=== PATIENT | male | born 1940 | race Caucasian/White ===

== ENCOUNTER → 2017-11-03 09:45 | Outpatient (CLI) | payer OTHER, SELFPAY ==
[2017-11-03 11:50] LABS: CREATININE 1.06 mg/dL (0.70-1.30); Glucose 96 mg/dL (70-100); HDL Cholesterol 38 mg/dL (40-60); LDL CHOLESTEROL 151 mg/dL (<100); Potassium 4.2 mmol/L (3.5-5.1); Triglyceride 236 mg/dL (30-150)
[2017-11-03 12:09] LABS: Cholesterol 219 mg/dL (50-200)
== END ==
PROVIDERS: PCP Family Medicine; Visit Provider Family Medicine
DX: I10 Essential (primary) hypertension (principal); E78.5 Hyperlipidemia, unspecified; E74.39 Other disorders of intestinal carbohydrate absorption
CPT/HCPCS: 36415; 80061; 82947; 83721; 82565; 84132

== ENCOUNTER 2018-07-01 20:09 | Emergency (ER) | payer OTHER, MEDICAID, SELFPAY ==
[2018-07-01] VITALS (36 sets, daily range): BP systolic 131–165; BP diastolic 68–103; PULSE 60–91; RESP 15–23; TEMP 36.4–37; O2SAT 91–99
--- NOTE | 2018-07-01 20:18 | DI.RAD_ITS ---
SYMPTOMS/DIAGNOSIS: LEFT CHEST PAIN CHEST: Frontal and lateral views. Comparison 04/05/13. The heart size and pulmonary vasculature are within normal limits. The lungs are clear. No effusions or pneumothoraces are identified. There is unchanged mild evaluation of the right hemidiaphragm. Age appropriate degenerative changes are seen in the spine. IMPRESSION: No acute pulmonary process.
[2018-07-01 20:30] LABS: Abs Immature Grans 0.06 k/cumm (0.0-0.09); Absolute Basophil Count 0.05 k/cumm (0.0-0.2); Absolute Eosinophil Count 0.56 k/cumm (0.0-0.7); Absolute Lymphocyte Count 3.47 k/cumm (1.2-3.4); Absolute Monocyte Count 1.36 k/cumm (0.11-0.7); Absolute Neutrophil Count 5.24 k/cumm (1.2-6.7); Basophils % 0.5; Eosinophils % 5.2; HCT 43.3 % (40.0-50.0); HGB 14.7 g/dL (13.5-17.5); Immature Grans % 0.6; Lymphocytes % 32.3; Mean Corp. HGB Concentration 33.9 g/dL (32.0-36.0); Mean Corpuscular Hemoglobin 31.2 pg (27.0-33.0); Mean Corpuscular Volume 91.9 fL (80-95); Mean Platelet Volume 11.3 fL (8.0-11.0); Monocytes % 12.7; Neutrophils % 48.7; Platelet Count 200 x1000/uL (130-400); RBC 4.71 m/cumm (4.50-6.00); RBC Distribution Width 13.4 % (11.8-14.1); White Blood Cell Count 10.74 k/cumm (4.4-10.8)
[2018-07-01 20:53] LABS: ALT 29 U/L (12-78); AST 26 U/L (15-37); Albumin 3.7 g/dL (3.4-5.0); Alkaline Phosphatase 78 U/L (46-116); Anion Gap 12.4 mmol/L (3-11); BUN 16 mg/dL (7-18); Bilirubin, Total 0.3 mg/dL (0.2-1.0); CO2 26.6 mmol/L (21.0-32.0); CREATININE 1.04 mg/dL (0.70-1.30); Calcium 9.1 mg/dL (8.5-10.1); Chloride 102 mmol/L (98-107); Glucose 95 mg/dL (70-100); Lipase 184 U/L (73-393); Potassium 3.9 mmol/L (3.5-5.1); Sodium 141 mmol/L (136-145); Total Protein 7.6 g/dL (6.4-8.2)
[2018-07-01 20:57] LABS: Troponin I < 0.02 ng/mL (0.00-0.06)
[2018-07-01 21:02] LABS: PTT Activated 18.5 sec (21.0-31.4); Prothrombin Time 9.6 sec (9.3-11.0)
--- NOTE | 2018-07-01 21:54 | W.ED.GENAD ---
Discharge Plan Disposition Patient Disposition: HOME Condition: Good Discharge Details Chief Complaint: Chest Pain Clinical Impression: Chest pain Primary Care Provider: Azeem Tovar ED Provider: Rafael Gutierrez Home Meds and New Rx's Prescriptions: New ranitidine HCl 300 mg capsule 300 mg PO DAILY Qty: 30 RF: 0 No Action aspirin [Aspirin Low-Strength] 81 MG tablet,chewable 81 mg PO DAILY RF: 0 atenolol 50 MG tablet 50 mg PO DAILY Qty: 90 RF: 4 omeprazole 20 MG capsule,delayed release(DR/EC) 20 mg PO EVERY OTHER DAY Qty: 45 RF: 3 lisinopril-hydrochlorothiazide 20-25 mg tablet 1 tab PO DAILY Qty: 90 RF: 4 Discharge Instructions Instructions: Chest Pain (ED), Diet for Stomach Ulcers and Gastritis (ED) Additional Instructions: If you notice any worsening of your symptoms, or any new symptoms such as vomiting, diarrhea, fever, chills, shortness of breath, chest pain, numbness, weakness, or fainting , please return immediately to the emergency department for reevaluation. Please follow up with your primary care provider as soon as possible for reassessment and reevaluation. As always, it was a pleasure participating in your medical care today. Referrals: Azeem Tovar. [Primary Care Provider] - Medical Decision Making This is a 78-year-old male with a past medical history of hypertension, high cholesterol, tobacco abuse, quit stress test in 2012 which was negative for any ischemic component, who presents today for evaluation of chest pain. States that over the last 3 months he gets this pinching-like sensation after he eats, worse when he lies flat, improved by sitting upright. He denies any exertional component, in fact he states that he regularly exercises does activities outside and has no shortness of breath chest pain or neck or shoulder pain. He denies any other complaints at this time. Signs and symptoms are clinically inconsistent with STEMI, aortic dissection, or severe PE, vital signs are notably reassuring. However because of his history of cardiac disease in the past with his notable cardiac risk factors we will do serial troponins, and cardiac rule out. 11:55 PM Patient serial troponins and EKG are benign, laboratory workup benign, chest x-ray negative for acute process. Signs and symptoms are clinically consistent with reflux and inconsistent with ACS at this time. Recommend close follow-up with his PCP on an outpatient basis, as well as home prescription of reflux medication. In addition to his omeprazole. I have extensively reviewed the treatment plan and discharge instructions with the patient. I have addressed all patient concerns at this time. The patient was made aware of what symptoms to monitor for that would warrant a return to the emergency department. Discussed the plan with the patient, they demonstrate verbal understanding and agreement with our assessment and plan at this time. EKG 20: 14 Rate 91, intervals normal, sinus rhythm, frequent PVCs, no significant ST elevations or depressions. Q waves noted in lead II. EKG 2314 Rate 82, intervals normal, sinus rhythm, frequent PVCs, no significant ST elevations or depressions, no T wave inversion. Q waves noted in lead III. No other significant abnormalities. Unchanged from prior EKG CLINICAL HISTORY: 78 years old, male; Pain; Chest pain; Type not specified; Patient HX: Chest pain for a few days TECHNIQUE: Imaging protocol: XR of the chest, 2 views. COMPARISON: CR CHEST 2 VIEWS PA,LAT 04/05/2013 12:52 PM FINDINGS: Lungs: Clear lungs. Pleural space: No pneumothorax. No sizable pleural effusion. Heart/Mediastinum: No cardiomegaly. Bones/joints: Unremarkable. IMPRESSION: Clear lungs. Dictated and Authenticated by: Henri Riley MD. Ordering:LINDSEY Hall MD HPI General Date/Time Provider Initiated Documentation: 07/01/18 20:17. HPI Narrative: This is a 78-year-old male with a past medical history of hypertension, high cholesterol, tobacco use, and cardiac disease who presents today for evaluation of chest pain. The patient states that over the last 2-3 months he has had intermittent chest pain, it occurs after he eats, worse when he lies flat, improved by sitting upright. He describes it as a pinching sensation. It usually lasts for usually 1-2 hours after eating and then gets better on its own. 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 He denies any previous or recent cough, fever, chills, hemoptysis, history of PE, recent long trips, recent surgeries. Patient had a stress test in 2012 which was benign at that time. He denies any other complaints or modifying factors. He denies any recent surgeries, or pertinent family history. No other complaints at this Related Data Home Medications Medication Instructions Recorded Confirmed aspirin [Aspirin Low-Strength] 81 mg PO DAILY tab-cap 06/23/15 07/01/18 atenolol 50 mg PO DAILY #90 tab-cap 18 07/01/18 omeprazole 20 mg PO EVERY OTHER DAY #45 11/03/17 07/01/18 tab-cap lisinopril 20 1 tab PO DAILY #90 tab-cap 04/04/18 07/01/18 mg-hydrochlorothiazide 25 mg tablet ranitidine HCl 300 mg PO DAILY #30 cap 07/01/18 Previous Rx's Medication Instructions Recorded atenolol 50 mg PO DAILY #90 tab-cap 05/24/17 omeprazole 20 mg PO EVERY OTHER DAY #45 11/03/17 tab-cap lisinopril 20 1 tab PO DAILY #90 tab-cap 04/04/18 mg-hydrochlorothiazide 25 mg tablet ranitidine HCl 300 mg PO DAILY #30 cap 07/01/18 Allergies Allergy/AdvReac Type Severity Reaction Status Date / Time simvastatin AdvReac Severe Hallucinati Unverified 07/01/18 20:16 ons pravastatin AdvReac Mild Nightmares Unverified 07/01/18 20:16 General Stated Complaint: Chest Pain TERRELL: 2 Review of Systems Review of Systems All systems reviewed & are unremarkable except as noted in HPI and below PFSH Family History Mother Essential hypertension Personal history of malignant neoplasm Father Diabetes Heart disease Sister Diabetes Heart disease Sister Essential hypertension Grandfather Diabetes Grandfather Diabetes Heart disease Grandmother Heart disease Grandmother Heart disease Son No problems noted. Son No problems noted. Social History Smoking/Tobacco Use Status: Former Tobacco Use Alcohol Intake: never Drug use: Never Substance use type: does not use Do you feel safe at home: Yes Do you feel safe in your relationship?: Yes Exam Narrative Exam Narrative: 1.Const: Well-nourished, Well-developed, appearing stated age 2.Eyes: PERRL, no conjunctival injection, and symmetrical lids. 3.ENT: Atraumatic external nose and ears. Moist MM. Neck: Symmetric, trachea midline, No thyromegaly. 4.CVS: +S1/S2, No murmurs or gallops. Peripheral pulses 2+ and equal in all extremities. Brisk capillary refill in all extremities. Radial pulses +2 bilaterally 5.RESP: Unlabored respiratory effort. Clear to auscultation bilaterally. No wheezes rales or rhonchi 6.GI: Soft, Nontender/Nondistended, No hepatosplenomegaly. No guarding or rebound. 7.MSK: Normocephalic/Atraumatic, Extremities w/o deformity or ttp No cyanosis or clubbing, Normal movement of all extremities 8.Skin: Warm, Dry. No rashes or lesions. 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 Sensation grossly intact, no focal neurologic deficits. 10.Psych: (AAO) x3. Appropriate mood and affect Course Vital Signs Temperature 36.4 C L 07/01/18 20:14 Pulse 87 07/01/18 20:14 Respiratory Rate 19 07/01/18 20:14 Blood Pressure 159/103 H 07/01/18 20:14 Pulse Oximetry 99 07/01/18 20:14 Temperature 36.9 C 07/01/18 21:35 Temperature Source Skin 07/01/18 21:35 Pulse 70 07/01/18 21:31 Pulse 83 07/01/18 21:31 Respiratory Rate 17 07/01/18 21:31 Respiratory Effort Non-Labored 07/01/18 20:29 Respiratory Depth Normal 07/01/18 20:29 Respiratory Pattern Normal 07/01/18 20:29 Blood Pressure 159/84 H 07/01/18 21:31 Blood Pressure Mean 101 07/01/18 21:31 Blood Pressure Position Sitting 07/01/18 20:14 Pulse Oximetry 92 L 07/01/18 21:31 Oxygen Delivery Method Room Air 07/01/18 20:14 Oxygen Flow Rate 0 07/01/18 20:14 Pain Level 5 07/01/18 20:29 Lab/Test Results Lab/Test Results: Laboratory Tests Range/Units 07/01/18 07/01/18 07/01/18 20:21 20:21 20:21 WBC (4.4-10.8) k/cumm 10.74 RBC (4.50-6.00) m/cumm 4.71 Hgb (13.5-17.5) g/dL 14.7 Hct (40.0-50.0) % 43.3 MCV (80-95) fL 91.9 MCH (27.0-33.0) pg 31.2 MCHC (32.0-36.0) g/dL 33.9 RDW (11.8-14.1) % 13.4 Plt Count (130-400) x1000/uL 200 MPV (8.0-11.0) fL 11.3 H Immature Gran % 0.6 Neutrophils % 48.7 Lymphocytes % 32.3 Monocytes % 12.7 Eosinophils % 5.2 Basophils % 0.5 Absolute Neutrophils (1.2-6.7) k/cumm 5.24 Absolute Lymphocytes (1.2-3.4) k/cumm 3.47 H Absolute Monocytes (0.11-0.7) k/cumm 1.36 H Absolute Eosinophils (0.0-0.7) k/cumm 0.56 Absolute Basophils (0.0-0.2) k/cumm 0.05 PT (9.3-11.0) sec 9.6 INR (0.9-1.1) 1.0 APTT (21.0-31.4) sec 18.5 L Sodium (136-145) mmol/L 141 Potassium (3.5-5.1) mmol/L 3.9 Chloride (98-107) mmol/L 102 Carbon Dioxide (21.0-32.0) mmol/L 26.6 Anion Gap (3-11) mmol/L 12.4 H BUN (7-18) mg/dL 16 Creatinine (0.70-1.30) mg/dL 1.04 Estimated GFR/1.73 m2 (mL/min/1.73m2) >= 60.00 Glucose (70-100) mg/dL 95 Calcium (8.5-10.1) mg/dL 9.1 Total Bilirubin (0.2-1.0) mg/dL 0.3 AST (15-37) U/L 26 ALT (12-78) U/L 29 Alkaline Phosphatase (46-116) U/L 78 Troponin I (0.00-0.06) ng/mL < 0.02 Total Protein (6.4-8.2) g/dL 7.6 Albumin (3.4-5.0) g/dL 3.7 Lipase (73-393) U/L 184
--- NOTE | 2018-07-01 22:01 | DI.VRAD_ITS ---
EXAM: XR Chest, 2 Views EXAM DATE/TIME: 07/01/2018 8:19 PM CLINICAL HISTORY: 78 years old, male; Pain; Chest pain; Type not specified; Patient HX: Chest pain for a few days TECHNIQUE: Imaging protocol: XR of the chest, 2 views. COMPARISON: CR CHEST 2 VIEWS PA,LAT 04/05/2013 12:52 PM FINDINGS: Lungs: Clear lungs. Pleural space: No pneumothorax. No sizable pleural effusion. Heart/Mediastinum: No cardiomegaly. Bones/joints: Unremarkable. IMPRESSION: Clear lungs. Dictated and Authenticated by: Henri Riley MD. Ordering:LINDSEY Hall MD
[2018-07-01 23:52] LABS: Troponin I < 0.02 ng/mL (0.00-0.06)
== END 2018-07-02 00:02 | disposition home or self-care (01) ==
PROVIDERS: Emergency Provider Student in an Organized Health Care Education/Training Program; PCP Family Medicine
DX: R07.9 Chest pain, unspecified (principal); I10 Essential (primary) hypertension
CPT/HCPCS: 36415; 80053; 83690; 93005; 99285; 71046; 84484; 85025; 85610; 85730; 93010

== ENCOUNTER 2018-07-05 07:06 | Emergency (ER) | payer OTHER, MEDICAID, SELFPAY ==
[2018-07-05] VITALS (37 sets, daily range): BP systolic 125–186; BP diastolic 68–86; PULSE 54–89; RESP 13–27; TEMP 36.8; O2SAT 90–98
--- NOTE | 2018-07-05 07:15 | W.ED.GENAD ---
Discharge Plan Disposition Patient Disposition: HOME Condition: Improving Discharge Details Chief Complaint: Chest Pain Clinical Impression: Atypical chest pain Primary Care Provider: Azeem Tovar ED Provider: Jennifer Hampton Home Meds and New Rx's Prescriptions: Continued aspirin [Aspirin Low-Strength] 81 MG tablet,chewable 81 mg PO DAILY RF: 0 atenolol 50 MG tablet 50 mg PO DAILY Qty: 90 RF: 4 omeprazole 20 MG capsule,delayed release(DR/EC) 20 mg PO EVERY OTHER DAY Qty: 45 RF: 3 lisinopril-hydrochlorothiazide 20-25 mg tablet 1 tab PO DAILY Qty: 90 RF: 4 ranitidine HCl 300 mg capsule 300 mg PO DAILY Qty: 30 RF: 0 Discharge Instructions Instructions: Chest Pain (ED) Additional Instructions: Follow-up with your scheduled appointment with your primary care doctor next Monday, July 11 at 3 PM. You will hear from your primary care doctor or the radiology department at the hospital regarding your appointment for the outpatient stress test. Fill your prescription that you were given here recently to help with possible acid reflux. Return immediately to the emergency department with any worsening or new concerning symptoms. Discharge Data Discharge Date/Time-TO BE ENTERED AT DEPARTURE: 07/05/18 11:00 Discharge Physician: Jennifer Hampton Medical Decision Making <Job Arita MD - Last Filed: 07/07/18 23:08> 78 yo male with hx of hld, htn, who on his medical record states CAD but sounds like this is from an admissin he had in the early for chestpain and stayed at [facility] for several days and had a stress test and d/c'd home (never had any cath, stent or cabg, suspect he was admitted for acs rule out), comes in with chest pain. He states he ate coffee and a muffin then developed left sided chest pain on the left chest. Pain was burning and lasted about 30 minutes. HE has no pain now unless you push on the left chest. HE had similar pain 2 days ago and had negative delta ecg and troponins. I suspect gastritits, his hx isn't consistent with acs but given his age and risk factors will obtain delta troponin and ecg. He is wells low, given age can't use perc so will obtain d dimer. No tearing chest pain and normal vascular exam so doubt dissection pt will be signed out to Dr. Hampton pending results of labs and disposition Differential Diagnosis gerd, gastritis, pe, dissection, acs ECG Data Attestation: I personally reviewed and interpreted this ECG (s) as follows: Prior ECG tracings: available for review Interpretation: sinus rhythm, frequent pvc's, pr 158, no significant st t wave changes to ekg's on 07/01/18 <Jennifer Hampton, - Last Filed: 07/06/18 18:13> Please see Dr. Arita's note for initial presentation, exam and plan. Patient is a 78-year-old man with history of GERD, hypertension, hyperlipidemia who presents with dull left-sided chest pain that started at 530 this morning after eating a coffee and muffin. States this pain is similar to pain that he had 4 days ago when he was seen in the emergency department. He stated at that time that he has had similar pain after eating and laying flat for the past 3 months. Patient's chart had noted that he has a history of ACS but patient denies any history of VT, CABG, cath or stent. He denies any associated symptoms. He also states the left-sided chest pain is tender to touch. He denies any recent injury. Chest pain appears atypical for ACS and that it is worse with laying flat and after eating, tender to touch, with no other associated symptoms. Denies tearing sensation so doubt dissection. No DVT/PE risk factors and will score low. D-dimer was ordered per Dr. Arita EKG notes a rate of 79, sinus, PVCs, no acute ST findings and no change from previous EKGs. Labs reviewed and had one negative troponin, normal BNP and lipase. Case endorsed to follow up on d-dimer and plan for second troponin and discharge home if negative. Patient is currently pain-free and with chronic nature of pain, which appears most likely consistent with GERD, will plan for outpatient stress test. 0840 -- D dimer elevated at 1436. Will order CT chest. Pt still pain free. 1000 -- CT chest negative for PE. 1045 -- second troponin negative. Repeat EKG unchanged, artifact but no acute ST findings. Patient denies any chest pain is requesting to go home. An appointment was made with his primary care doctor for follow-up next July 11 at 3 PM by care management. An outpatient order was also placed for an outpatient stress test. Patient was notified that he will be called by his primary care doctor or the radiology department once this test has been scheduled. Patient states he has not yet filled the prescription for Zantac he was given here 4 days ago. He is instructed to refrain from dietary choices that may affect GERD. He is instructed to return here immediately with any worsening or new concerning symptoms. Medical Records Medical records reviewed: Yes I reviewed the patient's medical records. Imaging Data Radiologic Study: Radiologist's impression: CT ANGIOGRAPHY CHEST: CT angiography was performed with multi slice acquisition and multi planar and 3D reconstruction. CT Angiography of the chest was performed with a bolus infusion of 100 cc's of Omnipaque 350. Images obtained through the upper abdomen show calcified granulomas of the spleen and liver. The kidneys, pancreas and adrenals are unremarkable in appearance. No mediastinal or hilar adenopathy seen. No evidence of pulmonary embolic disease or abnormality of the thoracic aorta. The lungs are generally clear except for some mild dependent atelectasis. The tracheobronchial tree appears intact. CONCLUSION: No evidence of pulmonary embolic disease. Lab Data Laboratory Tests Range/Units 07/05/18 07/05/18 07/05/18 07:13 07:13 07:13 WBC (4.4-10.8) k/cumm 7.89 RBC (4.50-6.00) m/cumm 5.13 Hgb (13.5-17.5) g/dL 15.9 Hct (40.0-50.0) % 46.6 MCV (80-95) fL 90.8 MCH (27.0-33.0) pg 31.0 MCHC (32.0-36.0) g/dL 34.1 RDW (11.8-14.1) % 13.5 Plt Count (130-400) x1000/uL 232 MPV (8.0-11.0) fL 10.7 Immature Gran % 0.3 Neutrophils % 56.1 Lymphocytes % 28.4 Monocytes % 11.7 Eosinophils % 3.0 Basophils % 0.5 Absolute Neutrophils (1.2-6.7) k/cumm 4.43 Absolute Lymphocytes (1.2-3.4) k/cumm 2.24 Absolute Monocytes (0.11-0.7) k/cumm 0.92 H Absolute Eosinophils (0.0-0.7) k/cumm 0.24 Absolute Basophils (0.0-0.2) k/cumm 0.04 PT (9.3-11.0) sec 9.8 INR (0.9-1.1) 1.0 APTT (21.0-31.4) sec 22.9 D-Dimer (<500) ng/mlFEU 1436 H Sodium (136-145) mmol/L 138 Potassium (3.5-5.1) mmol/L 3.5 Chloride (98-107) mmol/L 98 Carbon Dioxide (21.0-32.0) mmol/L 27.3 Anion Gap (3-11) mmol/L 12.7 H BUN (7-18) mg/dL 15 Creatinine (0.70-1.30) mg/dL 1.09 Estimated GFR/1.73 m2 (mL/min/1.73m2) >= 60.00 Glucose (70-100) mg/dL 130 H Calcium (8.5-10.1) mg/dL 9.5 Magnesium (1.8-2.4) mg/dL 1.9 Total Bilirubin (0.2-1.0) mg/dL 0.4 Conjugated Bilirubin (0.00-0.20) mg/dL 0.09 AST (15-37) U/L 21 ALT (12-78) U/L 31 Alkaline Phosphatase (46-116) U/L 86 Troponin I (0.00-0.06) ng/mL < 0.02 NT-Pro-B Natriuret Pep ( - 299) pg/mL 92 Total Protein (6.4-8.2) g/dL 8.1 Albumin (3.4-5.0) g/dL 4.1 Lipase (73-393) U/L 152 Range/Units 07/05/18 09:55 WBC (4.4-10.8) k/cumm RBC (4.50-6.00) m/cumm Hgb (13.5-17.5) g/dL Hct (40.0-50.0) % MCV (80-95) fL MCH (27.0-33.0) pg MCHC (32.0-36.0) g/dL RDW (11.8-14.1) % Plt Count (130-400) x1000/uL MPV (8.0-11.0) fL Immature Gran % Neutrophils % Lymphocytes % Monocytes % Eosinophils % Basophils % Absolute Neutrophils (1.2-6.7) k/cumm Absolute Lymphocytes (1.2-3.4) k/cumm Absolute Monocytes (0.11-0.7) k/cumm Absolute Eosinophils (0.0-0.7) k/cumm Absolute Basophils (0.0-0.2) k/cumm PT (9.3-11.0) sec INR (0.9-1.1) APTT (21.0-31.4) sec D-Dimer (<500) ng/mlFEU Sodium (136-145) mmol/L Potassium (3.5-5.1) mmol/L Chloride (98-107) mmol/L Carbon Dioxide (21.0-32.0) mmol/L Anion Gap (3-11) mmol/L BUN (7-18) mg/dL Creatinine (0.70-1.30) mg/dL Estimated GFR/1.73 m2 (mL/min/1.73m2) Glucose (70-100) mg/dL Calcium (8.5-10.1) mg/dL Magnesium (1.8-2.4) mg/dL Total Bilirubin (0.2-1.0) mg/dL Conjugated Bilirubin (0.00-0.20) mg/dL AST (15-37) U/L ALT (12-78) U/L Alkaline Phosphatase (46-116) U/L Troponin I (0.00-0.06) ng/mL < 0.02 NT-Pro-B Natriuret Pep ( - 299) pg/mL Total Protein (6.4-8.2) g/dL Albumin (3.4-5.0) g/dL Lipase (73-393) U/L ECG Data Attestation: I personally reviewed and interpreted this ECG (s) as follows: Interpretation: 0712 -- rate of 79, sinus, PVCs. No acute ST elevation or depression. QTc 445. QRS 98. 0956 -- rate of 70, sinus, artifact. No acute ST elevation or depression. QTc 455. QRS 100 per HPI <Job Arita MD - Last Filed: 07/07/18 23:08> General Mode of arrival: ambulatory. Date/Time Provider Initiated Documentation: 07/05/18 07:11. Limitations to Documentation: no limitations. Information obtained by: patient. History of Present Illness 78 year old M presents to the emergency department with the chief complaint of chest pain, described as mild, and is localized to the chest. Patient reports no radiation. Patient started experiencing this hour(s) (1) and it has been constant. No relieving factors improve symptom(s), Other factors that worsen symptoms (pushing on chest) . Patient notes no other symptoms.. Patient did receive the following treatments prior to arrival, none Related Data Home Medications Medication Instructions Recorded Confirmed aspirin [Aspirin Low-Strength] 81 mg PO DAILY tab-cap 06/23/15 07/05/18 atenolol 50 mg PO DAILY #90 tab-cap 05/24/17 07/05/18 omeprazole 20 mg PO EVERY OTHER DAY #45 11/03/17 07/05/18 tab-cap lisinopril 20 1 tab PO DAILY #90 tab-cap 04/04/18 07/05/18 mg-hydrochlorothiazide 25 mg tablet ranitidine HCl 300 mg PO DAILY #30 cap 07/01/18 07/05/18 Previous Rx's Medication Instructions Recorded atenolol 50 mg PO DAILY #90 tab-cap 05/24/17 omeprazole 20 mg PO EVERY OTHER DAY #45 11/03/17 tab-cap lisinopril 20 1 tab PO DAILY #90 tab-cap 04/04/18 mg-hydrochlorothiazide 25 mg tablet ranitidine HCl 300 mg PO DAILY #30 cap 07/01/18 Allergies Allergy/AdvReac Type Severity Reaction Status Date / Time simvastatin AdvReac Severe Hallucinati Unverified 07/05/18 07:23 ons pravastatin AdvReac Mild Nightmares Unverified 07/05/18 07:23 General TERRELL: 2 Review of Systems <Job Arita MD - Last Filed: 07/07/18 23:08> Review of Systems All systems reviewed & are unremarkable except as noted in HPI and below Constitutional Denies chills, Denies fever(s) and Denies weakness ENT Denies change in voice Cardiovascular Denies dyspnea Respiratory Denies cough and Denies dyspnea Gastrointestinal Denies abdominal pain, Denies nausea and Denies vomiting Musculoskeletal Denies joint swelling Integumentary/Breasts Denies rash Neurologic Denies weakness PFSH <Job Arita MD - Last Filed: 07/07/18 23:08> Family History Mother Essential hypertension Personal history of malignant neoplasm Father Diabetes Heart disease Sister Diabetes Heart disease Sister Essential hypertension Grandfather Diabetes Grandfather Diabetes Heart disease Grandmother Heart disease Grandmother Heart disease Son No problems noted. Son No problems noted. Social History Smoking/Tobacco Use Status: Former Tobacco Use Alcohol Intake: never Drug use: Never Substance use type: does not use Do you feel safe at home: Yes Do you feel safe in your relationship?: Yes Exam <Job Arita MD - Last Filed: 07/07/18 23:08> Const General: no acute distress Orientation: alert HENMT Head: normal to inspection Ears: external ears normal General nose exam: external nose normal Mouth: moist mucous membranes Eyes General: appearance normal, both eyes and all related structures Neck Neck: normal visual inspection Resp Effort & Inspection: normal respiratory effort and able to speak in complete sentences Cardio Rate: regular rate Skin General skin exam: no rashes or lesions noted Neuro General: alert and oriented x3 Extrem General: normal to inspection Psych Mental Status: mental status grossly normal Sign Out <Job Arita MD - Last Filed: 07/07/18 23:08> Sign Out Data: Sign Out Comment: follow up on chest pain labs Last updated by Job Arita MD at 07/05/18 07:32
[2018-07-05 07:24] LABS: Abs Immature Grans 0.02 k/cumm (0.0-0.09); Absolute Basophil Count 0.04 k/cumm (0.0-0.2); Absolute Eosinophil Count 0.24 k/cumm (0.0-0.7); Absolute Lymphocyte Count 2.24 k/cumm (1.2-3.4); Absolute Monocyte Count 0.92 k/cumm (0.11-0.7); Absolute Neutrophil Count 4.43 k/cumm (1.2-6.7); Basophils % 0.5; HCT 46.6 % (40.0-50.0); HGB 15.9 g/dL (13.5-17.5); Immature Grans % 0.3; Lymphocytes % 28.4; Mean Corp. HGB Concentration 34.1 g/dL (32.0-36.0); Mean Corpuscular Volume 90.8 fL (80-95); Mean Platelet Volume 10.7 fL (8.0-11.0); Monocytes % 11.7; Neutrophils % 56.1; Platelet Count 232 x1000/uL (130-400); RBC 5.13 m/cumm (4.50-6.00); RBC Distribution Width 13.5 % (11.8-14.1); White Blood Cell Count 7.89 k/cumm (4.4-10.8)
[2018-07-05 07:38] LABS: PTT Activated 22.9 sec (21.0-31.4); Prothrombin Time 9.8 sec (9.3-11.0)
[2018-07-05 07:44] LABS: ALT 31 U/L (12-78); AST 21 U/L (15-37); Albumin 4.1 g/dL (3.4-5.0); Alkaline Phosphatase 86 U/L (46-116); Anion Gap 12.7 mmol/L (3-11); BUN 15 mg/dL (7-18); Bilirubin, Direct 0.09 mg/dL (0.00-0.20); Bilirubin, Total 0.4 mg/dL (0.2-1.0); CO2 27.3 mmol/L (21.0-32.0); CREATININE 1.09 mg/dL (0.70-1.30); Calcium 9.5 mg/dL (8.5-10.1); Chloride 98 mmol/L (98-107); Glucose 130 mg/dL (70-100); Lipase 152 U/L (73-393); Magnesium 1.9 mg/dL (1.8-2.4); NT-proBNP 92 pg/mL; Potassium 3.5 mmol/L (3.5-5.1); Sodium 138 mmol/L (136-145); Total Protein 8.1 g/dL (6.4-8.2)
[2018-07-05 07:48] LABS: Troponin I < 0.02 ng/mL (0.00-0.06)
[2018-07-05 07:53] LABS: D-Dimer 1436 ng/mlFEU (<500)
[2018-07-05] MEDS: Omnipaque 350 MG/ML 100 ML BTL IJ (09:24)
[2018-07-05] MEDS: Normal Saline Flush 10 ML SYR IVP (09:27)
--- NOTE | 2018-07-05 09:36 | DI.CT_ITS ---
SYMPTOMS/DIAGNOSIS: ELEVATED D DIMER, CHEST PAIN, ? PE CT ANGIOGRAPHY CHEST: CT angiography was performed with multi slice acquisition and multi planar and 3D reconstruction. CT Angiography of the chest was performed with a bolus infusion of 100 cc's of Omnipaque 350. Images obtained through the upper abdomen show calcified granulomas of the spleen and liver. The kidneys, pancreas and adrenals are unremarkable in appearance. No mediastinal or hilar adenopathy seen. No evidence of pulmonary embolic disease or abnormality of the thoracic aorta. The lungs are generally clear except for some mild dependent atelectasis. The tracheobronchial tree appears intact. CONCLUSION: No evidence of pulmonary embolic disease.
--- NOTE | 2018-07-05 09:52 | PDOC.ERCMPRO ---
Care Management Progress Note 07/05-Dr. Arita requested assistance with a PCP (Alejandro) f/u in one week for chest pain. Called [facility] and spoke with Nila. Nila scheduled Sushant for Monday, 07/11 at 3:[address] Hampton has now taken over care. She is aware of appt to be placed on d/c paperwork and patient also given an appt card.
[2018-07-05 10:28] LABS: Troponin I < 0.02 ng/mL (0.00-0.06)
== END 2018-07-05 11:00 | disposition home or self-care (01) ==
PROVIDERS: Emergency Medicine; Emergency Provider Physician Assistant; PCP Family Medicine
DX: R07.9 Chest pain, unspecified (principal); I10 Essential (primary) hypertension
CPT/HCPCS: 36415; 71275; 80053; 80076; 83690; 93005; 99285; 83735; 83880; 84484; 85025; 85379; 85610; 85730; 93010; J3490

== ENCOUNTER 2018-07-09 00:31 | Outpatient (CLI) | payer OTHER, MEDICAID, SELFPAY ==
--- NOTE | 2018-07-09 13:45 | ETT_ITS ---
*[facility]* *[facility]* [address] [place] [address] Stress Electrocardiography Vasquez protocol Date of study: 07/09/2018 *PATIENT PRESENTATION* Height: 167.6cm (66in) Blood Pressure: Weight: 68.2kg (150lb) BSA: 1.79m^2 Referring physician: Jennifer Hampton Ordering physician: Jennifer Hampton Impressions: - Negative stress test after maximal exercise. - Frequent single PVCs throughout test. Summary: 1. Stress ECG conclusions: The stress ECG is negative. Frequent isolated ventricular ectopy with left bundle branch block with an inferior axis QRS morphology. Meneses treadmill score: 8. This score predicts a low risk of cardiac events. 2. Stress: The target heart rate was achieved. The heart rate response to stress is normal. There is resting hypertension with an appropriate response to stress. The patient experienced no chest pain during stress. Exercise capacity is average for age. 3. Baseline ECG: Occasional ectopy with left bundle branch block with an inferior axis QRS morphology. 4. Treadmill exercise testing was performed using the Vasquez protocol. The patient exercised for 7 min 40 sec, to protocol stage 3, to a maximal work rate of 9.6mets. Exercise was terminated due to leg fatigue. Recommendations: Holter monitor should be performed to assess PVC burden. Indication: R07.9, Appropriate Use Criteria: A (Appropriate). History: REASON FOR TESTING: PATIENT PRESENTED TO THE ER ON 07/05/18 FOR INTERMITTENT DULL/ACHY LEFT SIDED CHEST PAIN WITH LEFT ARM ACHING THAT LASTED FOR A COUPLE OF HOURS. HE REPORTS HE HAS BEEN GETTING CHEST DISCOMFORT FOR APPROXIMATELY 1 YEAR. HE STATES THE CHEST PAIN HAS BEEN MORE FREQUENT OVER THE LAST WEEK WHICH IS RELEIVED WITH LYING DOWN. IN THE ER PATIENT HAD NEGATIVE TROPONIN X2 AND AN EKG WITH NO ACUTE ST FINDINGS. PATIENT DENIES CHEST PAIN UPON ARRIVAL TO TESTING TODAY. SIGNIFICANT PAST MEDICAL HISTORY: GERD. SMOKING STATUS: QUIT 1979. SMOKED FOR 25 YEARS 1PPD. EXERCISE ROUTINE: ACTIVE WITH DAILY ADL'S AROUND HIS HOME. Risk factors: Family history of coronary artery disease. Hypertension. Dyslipidemia. Cholesterol: 219mg/dl. HDL: 38mg/dl. LDL: 151mg/dl. Triglycerides: 236mg/dl. ALLERGIES: SIMVASTATIN, PRAVASTATIN. MEDICATIONS: RANITIDINE 300 MG PRN, OMEPRAZOLE 20 MG DAILY, LISINOPRIL- HYDROCHLOROTHIAZIDE 20-25 MG DAILY, ATENOLOL 50 MG DAILY, ASPIRIN 81 MG DAILY. Protocol: Vasquez protocol. Baseline ECG: SINUS RHYTHM WITH FREQUENT PVC'S. HR 73 BPM. Normal sinus rhythm. Occasional ectopy with left bundle branch block with an inferior axis QRS morphology. Stress protocol: + +---+ + !Stage !HR !BP (mmHg) ! + +---+ + !Baseline supine !73 !156/70 (99) ! + +---+ + !Baseline standing !83 !160/86 (111)! + +---+ + !Stage I; 1.7mph, 10degrees; 3 min !100!160/70 (100)! + +---+ + !Stage II; 2.5mph, 12degrees; 3 min !110!162/68 (99) ! + +---+ + !Stage III; 3.4mph, 14degrees; 3 min!126!176/80 (112)! + +---+ + !Peak stress !138! ! + +---+ + !Recovery; 1 min !114!180/50 (93) ! + +---+ + !Recovery; 3 min !88 !182/78 (113)! + +---+ + !Recovery; 6 min !81 !164/70 (101)! + +---+ + !Recovery; 9 min !81 !144/78 (100)! + +---+ + * Stress results: STRESS TEST ENDED IN 7 MINUTES 40 SECONDS DUE TO LEG FATIGUE. NORMAL HEART RATE AND BLOOD PRESSURE RESPONSE TO EXERCISE. MAX HEART RATE: 138. 96 % OF TARGET HEART RATE ACHIEVED. MET'S: 9.62. FREQUENT PVC'S PRIOR TO EXERCISE, DURING EXERCISE AND EARLY RECOVERY. FREQUENT RUNS OF TRIGEMINY STARTING AT 4 MINUTES OF EXERCISE THROUGH TO APPROXIMATELY 2 MINUTES OF RECOVERY. NO ANGINA. NO SIGNIFICANT ST SEGMENT CHANGES. AVERAGE FUNCTIONAL CAPACITY. Maximal heart rate during stress was 138bpm (97% of maximal predicted heart rate). The maximal predicted heart rate was 143bpm. The target heart rate was achieved. The heart rate response to stress is normal. There is resting hypertension with an appropriate response to stress. The rate-pressure product for the peak heart rate and blood pressure was 01811kr Hg/min. The patient experienced no chest pain during stress. Exercise capacity is average for age. Stress ECG: The stress ECG is negative. Frequent isolated ventricular ectopy with left bundle branch block with an inferior axis QRS morphology. Meneses treadmill score: 8. This score predicts a low risk of cardiac events. Study data: Job Messer MD supervised and was readily available during the procedure. This study was interpreted by [facility]. Study status: Routine. Consent: The risks, benefits, and alternatives to the procedure were explained to the patient and informed consent was obtained. Procedure: Initial setup. A baseline ECG was recorded. Surface ECG leads and manual cuff blood pressure measurements were monitored. Heart sounds: Normal. Lung sounds: Normal. Treadmill exercise testing was performed using the Vasquez protocol. The patient exercised for 7 min 40 sec, to protocol stage 3, to a maximal work rate of 9.6mets. Exercise was terminated due to leg fatigue. Study completion: The patient tolerated the procedure well and was discharged from the lab. Discharge: The patient left the laboratory in stable condition. Birthdate: Patient birthdate: 1940. Sex: Gender: male. Study date: Study date: 07/09/2018. Study time: 00:01 AM. Signature Documentation: The Stress ECG portion of this study was interpreted by Dimitris Mcnally MD. Electronically signed by Dimitris Mcnally 07/23/2018 08:36
== END 2018-07-09 00:51 ==
PROVIDERS: PCP Family Medicine; Visit Provider Physician Assistant
DX: R07.9 Chest pain, unspecified (principal); I49.3 Ventricular premature depolarization
CPT/HCPCS: 93017

== ENCOUNTER 2018-07-13 01:21 | Outpatient (CLI) | payer OTHER, MEDICAID, SELFPAY ==
[2018-07-13 10:40] LABS: Hemoglobin A1C 6.2 % (4.5-6.2)
== END 2018-07-13 01:41 ==
PROVIDERS: PCP Family Medicine; Visit Provider Family Medicine
DX: R73.02 Impaired glucose tolerance (oral) (principal); E74.39 Other disorders of intestinal carbohydrate absorption
CPT/HCPCS: 36415; 83036

== ENCOUNTER 2018-07-15 10:24 | Emergency (ER) | payer OTHER, MEDICAID, SELFPAY ==
[2018-07-15 10:29] VITALS: BP 149/78; PULSE 85; RESP 16; TEMP 36.6; O2SAT 97
--- NOTE | 2018-07-15 10:44 | W.ED.GENAD ---
Discharge Plan Disposition Patient Disposition: HOME Discharge Details Chief Complaint: DentalOral Clinical Impression: Dental abscess, Dental caries Primary Care Provider: Azeem Tovar ED Provider: Surya Alfonso Home Meds and New Rx's Prescriptions: New penicillin V potassium 500 mg tablet 500 mg PO Q8H 10 Days Qty: 30 RF: 0 Continued aspirin [Aspirin Low-Strength] 81 MG tablet,chewable 81 mg PO DAILY RF: 0 atenolol 50 MG tablet 50 mg PO DAILY Qty: 90 RF: 4 lisinopril-hydrochlorothiazide 20-25 mg tablet 1 tab PO DAILY Qty: 90 RF: 4 ranitidine HCl 300 mg capsule 300 mg PO DAILY Qty: 30 RF: 0 Discharge Instructions Instructions: Dental Abscess (ED), Dental Caries (ED) Additional Instructions: You have been evaluated in the emergency department for suspected dental infection. Possible early abscess development. You have been given a prescription for penicillin to be taken in its full course. You must follow-up with a dentist to discuss further management of dental caries. Return should she develop fevers chills redness of the face or increased swelling of the jaw. Referrals: Azeem Tovar [Primary Care Provider] - 5 days Discharge Data Discharge Date/Time-TO BE ENTERED AT DEPARTURE: 07/15/18 10:57 Medical Decision Making This is a nontoxic-appearing 78-year-old male presenting with right lower gingival pain and swelling. Notable tooth decay on exam. No fluctuating abscess however gingival swelling noted. Vitals are stable and he is otherwise well-appearing. Plan is to place on a 10-day course of penicillin 500 mg every 8 hours and have him follow-up with PCP along with dentist. Return precautions provided including facial erythema worsening swelling throat or neck pain he is stable for discharge at this time HPI General Date/Time Provider Initiated Documentation: 07/15/18 10:32. HPI Narrative: Patient is a 78-year-old male with a past medical history of poor dentition who presents to the ED with right lower jaw pain and swelling. No fevers. He has several rotten teeth over the area. No established dentist in the area. He denies any facial redness or neck pain Related Data Home Medications Medication Instructions Recorded Confirmed aspirin [Aspirin Low-Strength] 81 mg PO DAILY tab-cap 06/23/15 07/15/18 atenolol 50 mg PO DAILY #90 tab-cap 05/24/17 07/15/18 lisinopril 20 1 tab PO DAILY #90 tab-cap 04/04/18 07/15/18 mg-hydrochlorothiazide 25 mg tablet ranitidine HCl 300 mg PO DAILY #30 cap 07/01/18 07/15/18 penicillin V potassium 500 mg PO Q8H 10 Days #30 tab 07/15/18 Previous Rx's Medication Instructions Recorded atenolol 50 mg PO DAILY #90 tab-cap 05/24/17 lisinopril 20 1 tab PO DAILY #90 tab-cap 04/04/18 mg-hydrochlorothiazide 25 mg tablet ranitidine HCl 300 mg PO DAILY #30 cap 07/01/18 penicillin V potassium 500 mg PO Q8H 10 Days #30 tab 07/15/18 Allergies Allergy/AdvReac Type Severity Reaction Status Date / Time simvastatin AdvReac Severe Hallucinati Unverified 07/15/18 10:31 ons pravastatin AdvReac Mild Nightmares Unverified 07/15/18 10:31 General Stated Complaint: DentalOral TERRELL: 4 Review of Systems Constitutional Denies anorexia, Denies chills, Denies fatigue, Denies fever(s), Denies headache(s), Denies lethargy, Denies night sweats and Denies weakness Eyes Denies eye discharge ENT Denies bleeding gums, Denies headache(s), Denies mouth lesions, Denies mouth pain and Reports other Cardiovascular Reports system reviewed and no additional complaints, except as docu Respiratory Reports system reviewed and no additional complaints, except as docu Gastrointestinal Denies nausea and Denies vomiting Musculoskeletal Denies joint swelling Neurologic Denies headache(s) and Denies weakness Endocrine Denies fatigue [facility] Family History Mother Essential hypertension Personal history of malignant neoplasm Father Diabetes Heart disease Sister Diabetes Heart disease Sister Essential hypertension Grandfather Diabetes Grandfather Diabetes Heart disease Grandmother Heart disease Grandmother Heart disease Son No problems noted. Son No problems noted. Social History Smoking/Tobacco Use Status: Former Tobacco Use Alcohol Intake: never Drug use: Never Substance use type: does not use Do you feel safe at home: Yes Do you feel safe in your relationship?: Yes Exam Const General: cooperative, healthy appearing and comfortable Orientation: alert, awake and oriented x3 HENMT Head: normal to inspection Ears: hearing grossly normal bilaterally General nose exam: external nose normal Face and sinus: normal facial exam Teeth and gingiva: caries, gingiva abnormal hypertrophic, edematous, diffusely erythematous and tender and poor dentition Throat: posterior oropharynx normal Eyes General: appearance normal, both eyes and all related structures Neck Neck: normal visual inspection and full ROM Lymphatic: no lymphadenopathy noted Chest Chest: normal inspection of the chest Resp Effort & Inspection: normal respiratory effort Auscultation: clear to auscultation bilaterally Cardio Jugular venous pressure: no JVD Palpation: normal PMI Rate: regular rate Rhythm: regular rhythm Heart Sounds: S1 normal and S2 normal Skin General skin exam: no rashes or lesions noted and no erythema Course Vital Signs Temperature 36.6 C 07/15/18 10:29 Pulse 85 07/15/18 10:29 Respiratory Rate 16 07/15/18 10:29 Blood Pressure 149/78 H 07/15/18 10:29 Pulse Oximetry 97 07/15/18 10:29 Temperature 36.6 C 07/15/18 10:29 Temperature Source Skin 07/15/18 10:29 Pulse 85 07/15/18 10:29 Respiratory Rate 16 07/15/18 10:29 Respiratory Effort Non-Labored 07/15/18 10:29 Blood Pressure 149/78 H 07/15/18 10:29 Blood Pressure Position Sitting 07/15/18 10:29 Pulse Oximetry 97 07/15/18 10:29 Oxygen Delivery Method Room Air 07/15/18 10:29 Oxygen Flow Rate 0 07/15/18 10:29 Pain Level 5 07/15/18 10:32
== END 2018-07-15 10:57 | disposition home or self-care (01) ==
LOC: ER 11:00
PROVIDERS: Emergency Provider Physician Assistant; PCP Family Medicine
DX: K04.7 Periapical abscess without sinus (principal)
CPT/HCPCS: 99283

== ENCOUNTER 2018-07-23 08:36 | Outpatient (CLI) | payer MEDICARE, MEDICAID, SELFPAY | END 2018-07-23 08:56 | PROVIDERS: PCP Family Medicine; Referring Provider Family Medicine; Visit Provider Student in an Organized Health Care Education/Training Program | DX: R07.9 Chest pain, unspecified (principal); I49.3 Ventricular premature depolarization | CPT/HCPCS: 93016; 93018 ==

== ENCOUNTER → 2018-07-26 14:19 | Outpatient (BNVA) | payer OTHER, MEDICAID, SELFPAY | PROVIDERS: PCP Family Medicine; Referring Provider Family Medicine; Visit Provider Internal Medicine Cardiovascular Disease | DX: I25.10 Atherosclerotic heart disease of native coronary artery without angina pectoris (principal); E78.5 Hyperlipidemia, unspecified; I10 Essential (primary) hypertension; I49.3 Ventricular premature depolarization | CPT/HCPCS: 99214 ==

== ENCOUNTER 2019-04-05 04:36 | Emergency (ER) | payer OTHER, SELFPAY ==
[2019-04-05] VITALS (18 sets, daily range): BP systolic 127–183; BP diastolic 55–97; PULSE 64–100; RESP 16–23; TEMP 36.7; O2SAT 89–98
[2019-04-05] MEDS: Lidocaine 5% Patch 1 PATCH TP (05:04)
--- NOTE | 2019-04-05 05:05 | ED.GENADUL_ITS ---
Discharge Plan Disposition Patient Disposition: HOME Condition: Good Discharge Details Chief Complaint: GenMedical Clinical Impression: Left shoulder pain, Left shoulder strain Primary Care Provider: Azeem Tovar ED Provider: Rafael Gutierrez Home Meds and New Rx's Prescriptions: New lidocaine [Lidoderm] 1 PATCH patch 1 patch Topical Q24H Qty: 4 RF: 0 No Action aspirin [Aspirin Low-Strength] 81 MG tablet,chewable 81 mg PO DAILY RF: 0 lisinopril-hydrochlorothiazide 20-25 mg tablet 1 tab PO DAILY Qty: 90 RF: 4 ranitidine HCl 300 mg capsule 300 mg PO DAILY Qty: 90 RF: 3 atenolol 50 mg tablet 50 mg PO DAILY Qty: 90 RF: 4 Discharge Instructions Instructions: Shoulder Sprain (ED) Additional Instructions: This time your x-ray shows no evidence of fracture. I suspect that you have s trained the ligaments in your shoulder. Please take Tylenol and Motrin as needed with the pain. Please use the Lidoderm patch as needed as well. Please avoid any significant activity using the left arm to prevent any worsening of the injury. If you notice any worsening of your symptoms, or any new symptoms such as vomiting, diarrhea, fever, chills, shortness of breath, chest pain, numbness, weakness, or fainting , please return immediately to the emergency department for reevaluation. Please follow up with your primary care provider as soon as possible for reassessment and reevaluation. As always, it was a pleasure participating in your medical care today. Referrals: Azeem Tovar. [Primary Care Provider] - Medical Decision Making Is a pleasant 78-year-old male who presents for left shoulder pain. Is been present for the last 3 days. Shortly before symptoms began he did a significant amount of snow shoveling. His left shoulder pain is worse with movement, and he feels it was related to his work with shoveling. He denies any exertional discomfort or chest pain. He denies any shortness of breath or chest heaviness. Physical exam demonstrates worsening of pain with internal and external rotation of the shoulder. The patient does admit to multiple previous injuries of the shoulder in the past and with work. Radial pulses intact. EKG shows no evidence of STEMI. Unchanged change from prior EKGs. Signs and symptoms appear clinically consistent with musculoskeletal shoulder sprain, however because of the patient's age, cardiac history, we will perform a cardiac evaluation out of an abundance of precaution. Get x-rays, EKG, labs. We will treat with NSAIDs and Lidoderm patch. 6:50 AM Laboratory work-up is returned, troponin normal, EKG unchanged, chest x-ray and shoulder x-ray unremarkable. No evidence of pneumonia. Signs and symptoms clinically consistent with arthritis in the left shoulder and strain, and clinically inconsistent with cardiac ACS. Patient will be discharged as he is noting improvement of his pain with NSAIDs. Discussed red flags which to return. I have extensively reviewed the treatment plan and discharge instructions with the patient. I have addressed all patient concerns at this time. The patient was made aware of what symptoms to monitor for that would warrant a return to the emergency department. Discussed the plan with the patient, they demonstrate verbal understanding and agreement with our assessment and plan at this time. EKG 4: 45 Rate 87, intervals normal, sinus rhythm, old Q waves in lead III. No significant ST elevations or depressions. No evidence of STEMI. Review of prior EKG from 07/05/2018 demonstrates no acute changes. FINDINGS: Lungs: Unremarkable. No consolidation. Pleural space: Unremarkable. No pleural effusion. No pneumothorax. Heart/Mediastinum: Unremarkable. No cardiomegaly. Bones/joints: No acute bony findings. IMPRESSION: Normal chest x-ray. Thank you for allowing us to participate in the care of your patient. Dictated and Authenticated by: Joo Pagan MD 04/05/2019 6:19 AM Eastern Time ([place] & [place]) FINDINGS: Lungs: Unremarkable. No consolidation. Pleural space: Unremarkable. No pleural effusion. No pneumothorax. Heart/Mediastinum: Unremarkable. No cardiomegaly. Bones/joints: No acute bony findings. IMPRESSION: Normal chest x-ray. Thank you for allowing us to participate in the care of your patient. Dictated and Authenticated by: Joo Pagan MD 04/05/2019 6:19 AM Eastern Time ([place] & [place]) HPI General Date/Time Provider Initiated Documentation: 04/05/19 04:38 . HPI Narrative: 78-year-old male with a past medical history of hypertension, previous left shoulder injuries, reflux, previous myocardial infarction in 1981 for which he received no stents at that time, who presents today for left shoulder pain. Patient states that is been present for the last 3 days. It occurred after he did a significant amount of snow shoveling. He had no pain during that episode. Since then he denies any exertional chest discomfort, he denies any worsening of his symptoms with exertion but his pain in his left shoulder is worsened with movement of the left shoulder. He is also noticed that his blood pressures been slightly elevated over the last 24 hours which is also led to concern. He denies any chest pain, chest tightness, shortness of breath, pleuritic chest pa in, chest heaviness, arm or neck pain. He denies any cough, fever or chills. He has taken an aspirin this evening. He denies any other complaints at this time. No other modifying factors. No numbness or tingling in the hand or arm. Related Data Home Medications Medication Instructions Recorded Confirmed aspirin [Aspirin Low-Strength] 81 mg PO DAILY tab-cap 06/23/15 04/05/19 lisinopril 20 1 tab PO DAILY #90 tab-cap 04/04/18 04/05/19 mg-hydrochlorothiazide 25 mg tablet ranitidine HCl 300 mg capsule 300 mg PO DAILY #90 cap 08/08/18 04/05/19 atenolol 50 mg tablet 50 mg PO DAILY #90 tab-cap 08/24/18 04/05/19 lidocaine [Lidoderm] 1 patch TOPICAL Q24H #4 patch 04/05/19 Previous Rx's Medication Instructions Recorded lisinopril 20 1 tab PO DAILY #90 tab-cap 04/04/18 mg-hydrochlorothiazide 25 mg tablet ranitidine HCl 300 mg capsule 300 mg PO DAILY #90 cap 08/08/18 atenolol 50 mg tablet 50 mg PO DAILY #90 tab-cap 08/24/18 lidocaine [Lidoderm] 1 patch TOPICAL Q24H #4 patch 04/05/19 Allergies Allergy/AdvReac Type Severity Reaction Status Date / Time simvastatin AdvReac Severe Hallucinati Unverified 11/06/18 11:17 ons pravastatin AdvReac Mild Nightmares Unverified 11/06/18 11:17 General Stated Complaint: GenMedical TERRELL: 3 Review of Systems All systems reviewed & are unremarkable except as noted in HPI and below [facility] Medical History (Updated 11/06/18 @ 14:02 by Azeem Tovar) Foot pain, bilateral (Acute) likely chronic OA vs RA Hip pain, right (Acute) likely troch bursitis Family History (Updated 11/14/18 @ 11:44 by Michel Palacios) Mother , 73 Essential hypertension Liver cancer Father , 73 Diabetes Heart disease Sister , 72 Diabetes Heart disease Sister Essential hypertension Maternal Grandfather , KILLED at age 50. Diabetes Paternal Grandfather , 69 Diabetes Heart disease Stroke Maternal Grandmother Heart disease Paternal Grandmother Heart disease Son No problems noted. Son No problems noted. Social History (Updated 11/14/18 @ 11:42 by Michel Palacios) Smoking/Tobacco Use Status: Former Tobacco Use Quit Date: 03/27/79 Alcohol Intake: former Drug use: Never Substance use type: does not use Caregiver/Support person: No Communication Needs: None Pets and animals: Yes Pets and animals: dog(s) Do you think of yourself as: straight/heterosexual What is your relationship status?: How often do you talk on the phone with friends or family?: once per week How often do you get together with friends or relatives?: twice per week How often do you attend yarsanism or quaker services?: decline to answer Do you belong to any clubs or organized social groups?: no Panel score (0-1 are the most socially isolated patients): 1 What type of physical activity do you participate in: other Details: work Duration: > 90 minutes/day Frequency: 5-6 times per week Danica/Amish: None Special danica needs: No Seatbelt use: always Helmet use: No Drive intox or ride w/intox medical delivery driver: No Do you feel safe at home: Yes Do you feel safe in your relationship?: Yes Exam Narrative Exam Narrative: 1.Const: Well-nourished, Well-developed, appearing stated age 2.Eyes: PERRL, no conjunctival injection, and symmetrical lids. 3.ENT: Atraumatic external nose and ears. Moist MM. Neck: Symmetric, trachea midline, No thyromegaly. 4.CVS: +S1/S2, No murmurs or gallops. Peripheral pulses 2+ and equal in all extremities. Brisk capillary refill in all extremities. 5.RESP: Unlabored respiratory effort. Clear to auscultation bilaterally. No wheezes rales or rhonchi 6.GI: Soft, Nontender/Nondistended, No hepatosplenomegaly. No guarding or rebound. 7.MSK: Normocephalic/Atraumatic, Extremities w/o deformity. No cyanosis or clubbing. Mild reproducible tenderness on palpation of the anterior shoulder, worsening of pain with internal and external rotation of the shoulder, no signi ficant pain with abduction, adduction, flexion or extension. Normal sensation throughout, +2 radial pulses bilaterally. 8.Skin: Warm, Dry. No rashes or lesions. 9.Neuro: research intern II-XII grossly intact. Sensation grossly intact, no focal neurologic deficits. 10.Psych: (AAO) x3. Appropriate mood and affect Course Vital Signs Vital signs: Vital Signs Temperature 36.7 C 04/05/19 04:42 Pulse 100 H 04/05/19 04:42 Respiratory Rate 16 04/05/19 04:42 Blood Pressure 183/97 H 04/05/19 04:42 Pulse Oximetry 98 04/05/19 04:42 Temperature 36.7 C 04/05/19 04:42 Temperature Source Skin 04/05/19 04:42 Pulse 100 H 04/05/19 04:42 Respiratory Rate 16 04/05/19 04:42 Respiratory Effort 04/05/19 04:42 Blood Pressure 183/97 H 04/05/19 04:42 Pulse Oximetry 98 04/05/19 04:42 Oxygen Delivery Method Room Air 04/05/19 04:42 Oxygen Flow Rate 0 04/05/19 04:42 Pain Level 7 04/05/19 04:42
[2019-04-05] MEDS: Acetaminophen 500 MG TAB 1000 MG PO (05:09)
[2019-04-05] MEDS: Ibuprofen 800 MG TAB PO (05:10)
--- NOTE | 2019-04-05 05:30 | DI.RAD_ITS ---
EXAM: XR CHEST 2V PA LATERAL XR CHEST 2V PA LATERAL CLINICAL HISTORY: left shoulder and chest pain left shoulder and chest pain TECHNIQUE: 2D digital imaging was performed. COMPARISON: XR CHEST 2V PA LATERAL from 07/01/2018 FINDINGS: The heart is not enlarged. The lungs are clear and well expanded. No pleural effusion seen. Mediastin al contours appear intact. IMPRESSION: Normal chest
--- NOTE | 2019-04-05 05:30 | DI.RAD_ITS ---
EXAM: XR SHOULDER LT COMPLETE 2+V CLINICAL HISTORY: left shoulder pain COMPARISON: No exams were available for comparison FINDINGS: Five views were obtained. 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 No acute fracture identified. Multiple soft tissue calcifications noted, calcific per itendinitis may be present as well.
[2019-04-05 05:50] LABS: Abs Immature Grans 0.02 k/cumm (0.0-0.09); Absolute Basophil Count 0.04 k/cumm (0.0-0.2); Absolute Eosinophil Count 0.24 k/cumm (0.0-0.7); Absolute Lymphocyte Count 1.24 k/cumm (1.2-3.4); Absolute Neutrophil Count 8.35 k/cumm (1.2-6.7); Basophils % 0.4; Eosinophils % 2.2; HCT 42.1 % (40.0-50.0); HGB 14.5 g/dL (13.5-17.5); Immature Grans % 0.2 %; Lymphocytes % 11.2; Mean Corp. HGB Concentration 34.4 g/dL (32.0-36.0); Mean Corpuscular Hemoglobin 31.6 pg (27.0-33.0); Mean Corpuscular Volume 91.7 fL (80-95); Mean Platelet Volume 10.7 fL (8.0-11.0); Monocytes % 10.8; Neutrophils % 75.2; Platelet Count 221 x1000/uL (130-400); RBC 4.59 m/cumm (4.50-6.00); RBC Distribution Width 13.2 % (11.8-14.1); White Blood Cell Count 11.11 k/cumm (4.4-10.8)
[2019-04-05 06:06] LABS: ALT 19 U/L (16-63); AST 17 U/L (15-37); Albumin 3.8 g/dL (3.4-5.0); Alkaline Phosphatase 79 U/L (46-116); Anion Gap 13.2 mmol/L (3-11); BUN 17 mg/dL (7-18); Bilirubin, Total 0.4 mg/dL (0.2-1.0); CO2 24.8 mmol/L (21.0-32.0); CREATININE 1.04 mg/dL (0.70-1.30); Calcium 9.2 mg/dL (8.5-10.1); Chloride 103 mmol/L (98-107); Glucose 119 mg/dL (74-106); Potassium 3.4 mmol/L (3.5-5.1); Sodium 141 mmol/L (136-145); Total Protein 7.1 g/dL (6.4-8.2)
[2019-04-05 06:12] LABS: Troponin I < 0.05 ng/Ml (<0.06)
--- NOTE | 2019-04-05 06:20 | DI.VRAD_ITS ---
PROCEDURE INFORMATION: Exam: XR Left Shoulder Exam date and time: 04/05/2019 5:02 AM Age: 78 years old Clinical indication: Pain; Shoulder; Left; Additional info: Left shoulder and chest pain after shoveling snow TECHNIQUE: Imaging protocol: XR Left shoulder. Views: 2 or more views. COMPARISON: No relevant prior studies available. FINDINGS: Bones/joints: Degenerative changes of the glenohumeral joint, severe. Marked degenerative changes left acromioclavicular joint. Moderate superior migration of the humeral head, in relation to the glenoid fossa, chronic. Likely indicates a degree of impingement of the supraspinatus tendon. No fracture or dislocation. Soft tissues: There is a well-defined soft tissue calcification/ossification adjacent to the humeral head, consistent with calcific tendinitis. IMPRESSION: No acute findings. Dictated and Authenticated by: Joo Pagan MD. Ordering:LINDSEY Hall MD
--- NOTE | 2019-04-05 06:20 | DI.VRAD_ITS ---
PROCEDURE INFORMATION: Exam: XR Chest, 2 Views Exam date and time: 04/05/2019 5:02 AM Age: 78 years old Clinical indication: Left-sided chest pain TECHNIQUE: Imaging protocol: XR of the chest Views: 2 views. COMPARISON: CR XR CHEST 2V PA LATERAL 07/01/2018 9:15 PM FINDINGS: Lungs: Unremarkable. No consolidation. Pleural space: Unremarkable. No pleural effusion. No pneumothorax. Heart/Mediastinum: Unremarkable. No cardiomegaly. Bones/joints: No acute bony findings. IMPRESSION: Normal chest x-ray. Dictated and Authenticated by: Joo Pagan MD. Ordering:LINDSEY Hall MD
== END 2019-04-05 07:00 | disposition home or self-care (01) ==
LOC: ER 05:36
PROVIDERS: Emergency Provider Student in an Organized Health Care Education/Training Program; PCP Family Medicine
DX: S46.912A Strain of unspecified muscle, fascia and tendon at shoulder and upper arm level, left arm, initial encounter (principal); X50.9XXA Other and unspecified overexertion or strenuous movements or postures, initial encounter; I25.2 Old myocardial infarction; I10 Essential (primary) hypertension
CPT/HCPCS: 80053; 93005; 99285; 71046; 73030; 84484; 85025; 93010; 99284

== ENCOUNTER 2019-04-16 06:44 | Emergency (ER) | payer OTHER, SELFPAY ==
[2019-04-16 06:48] VITALS: BP 153/87; PULSE 98; RESP 16; TEMP 36.4; O2SAT 98
--- NOTE | 2019-04-16 07:00 | W.ED.GENAD ---
Discharge Plan Disposition Patient Disposition: HOME Condition: Good Discharge Details Chief Complaint: Orthopedic Clinical Impression: Right shoulder injury Primary Care Provider: Azeem Tovar ED Provider: Sy Merritt Home Meds and New Rx's Prescriptions: New acetaminophen [Tylenol Extra Strength] 500 mg tablet 1,000 mg PO Q6H PRN (Reason: pain) Qty: 30 RF: 0 Continued aspirin [Aspirin Low-Strength] 81 MG tablet,chewable 81 mg PO DAILY RF: 0 lisinopril-hydrochlorothiazide 20-25 mg tablet 1 tab PO DAILY Qty: 90 RF: 4 atenolol 50 mg tablet 50 mg PO DAILY Qty: 90 RF: 4 famotidine [Heartburn Relief (famotidine)] 20 mg tablet 40 mg PO DAILY Qty: 180 RF: 3 lidocaine [Lidoderm] 1 PATCH patch 1 patch Topical Q24H Qty: 4 RF: 0 Discharge Instructions Additional Instructions: Please take Tylenol every 6 hours for pain. Lidoderm patches on daily for discomfort. Wear sling until follow-up with orthopedics. Call orthopedics for follow-up in 1 to 2 weeks. Return to ED for neurologic change, worsening arm pain, other concerns. Referrals: [facility] [Provider Group] Medical Decision Making Patient with significant swelling and decreased range of motion in the right shoulder. May be even a little crepitus felt anteriorly. Mechanism of injury minimal but consider dislocation or subluxation. Doubt fracture. Rotator cuff injury also likely. Patient given Tylenol and sent for x-ray. X-ray reviewed by me and read by radiology. Discussed with Dr. Medrano. No definite fracture but definitely a lot of chronic change involving the glenoid and acromium. Cannot rule out an acute fracture, but most likely all chronic changes. No dislocation. Even if fracture out in the distal acromium unlikely to require emergent surgical repair. Will place Lidoderm patch. Will put patient in a sling. Will refer to orthopedics for follow-up in a week or so to reevaluate. Per records patient has history of chronic kidney disease and hypertension so we will avoid nonsteroidals for now. Tylenol and Lidoderm for pain. Return to ED for any neurologic changes, worsening pain, other concerns. HPI General Mode of arrival: ambulatory. Date/Time Provider Initiated Documentation: 04/16/19 06:58. Limitations to Documentation: no limitations. Information obtained by: patient and RN notes reviewed. HPI Narrative: Patient presents to ED with right shoulder pain. He is right-hand dominant. 2 nights ago when he was trying to get into bed he was pushing off the bed with his right arm. He felt a pop in the right shoulder. Since then he has had pain as well as inability to move the arm at the shoulder. He denies chest pain. He denies back pain. He denies any numbness or weakness in the hand. He has been using aspirin but nothing else for pain. Related Data Home Medications Medication Instructions Recorded Confirmed aspirin [Aspirin Low-Strength] 81 mg PO DAILY tab-cap 06/22/04/16/19 lisinopril 20 1 tab PO DAILY #90 tab-cap 04/04/18 04/16/19 mg-hydrochlorothiazide 25 mg tablet atenolol 50 mg tablet 50 mg PO DAILY #90 tab-cap 08/24/18 04/16/19 famotidine 20 mg tablet 40 mg PO DAILY #180 tab 04/05/19 04/16/19 acetaminophen [Tylenol Extra 1,000 mg PO Q6H PRN #30 tab 04/16/19 Strength] lidocaine [Lidoderm] 1 patch TOPICAL Q24H #4 patch 04/16/19 Previous Rx's Medication Instructions Recorded lisinopril 20 1 tab PO DAILY #90 tab-cap 04/04/18 mg-hydrochlorothiazide 25 mg tablet atenolol 50 mg tablet 50 mg PO DAILY #90 tab-cap 08/24/18 famotidine 20 mg tablet 40 mg PO DAILY #180 tab 04/05/19 acetaminophen [Tylenol Extra 1,000 mg PO Q6H PRN #30 tab 04/16/19 Strength] lidocaine [Lidoderm] 1 patch TOPICAL Q24H #4 patch 04/16/19 Allergies Allergy/AdvReac Type Severity Reaction Status Date / Time simvastatin AdvReac Severe Hallucinati Unverified 04/16/19 06:52 ons pravastatin AdvReac Mild Nightmares Unverified 04/16/19 06:52 General Stated Complaint: Orthopedic TERRELL: 4 Review of Systems Constitutional Constitutional: Denies fever(s) and Denies weakness Cardiovascular Cardiovascular: Denies chest pain and Denies dyspnea Respiratory Respiratory: Denies dyspnea Musculoskeletal Musculoskeletal: Reports joint swelling, Reports limited range of motion and Denies numbness Neurologic Neurologic: Denies numbness, Denies paresthesias and Denies weakness COUNT INCLUDES THE [facility] Medical History Atherosclerosis of [place] coronary artery (Chronic) [place] 1981 MPI 2012 no ischemia. fixed inf defect echo-normal Chronic kidney disease (Chronic) Essential hypertension (Chronic 03/04/13) Gastroesophageal reflux disease (Chronic) Hyperlipidemia (Chronic) intol statins nightmares Osteoarthritis (Chronic 08/22/12) hands Family History (Updated 11/14/18 @ 11:44 by Michel Palacios) Mother , 73 Essential hypertension Liver cancer Father , 73 Diabetes Heart disease Sister , 72 Diabetes Heart disease Sister Essential hypertension Maternal Grandfather , KILLED at age 50. Diabetes Paternal Grandfather , 69 Diabetes Heart disease Stroke Maternal Grandmother Heart disease Paternal Grandmother Heart disease Son No problems noted. Son No problems noted. Social History Smoking/Tobacco Use Status: Former Tobacco Use Quit Date: 03/27/79 Alcohol Intake: former Drug use: Never Substance use type: does not use Caregiver/Support person: No Communication Needs: None Pets and animals: Yes Pets and animals: dog(s) Do you think of yourself as: straight/heterosexual What is your relationship status?: How often do you talk on the phone with friends or family?: once per week How often do you get together with friends or relatives?: twice per week How often do you attend nondenominational or hindu services?: decline to answer Do you belong to any clubs or organized social groups?: no Panel score (0-1 are the most socially isolated patients): 1 What type of physical activity do you participate in: other Details: work Duration: > 90 minutes/day Frequency: 5-6 times per week Danica/Sikhism: None Special danica needs: No Seatbelt use: always Helmet use: No Drive intox or ride w/intox transportation driver: No Do you feel safe at home: Yes Do you feel safe in your relationship?: Yes Exam Const General: cooperative and comfortable Orientation: alert and oriented x3 Neck Neck: normal visual inspection, trachea midline and supple Resp Effort & Inspection: normal respiratory effort Skin Rashes: no rashes Neuro General: alert, oriented x3 and gait normal Cognition: normal cognition Speech: speech normal Gait: normal gait Motor: strength 5/5 throughout Sensory Exam: no sensory deficits noted Extrem Other: Marked swelling anteriorly in the right shoulder. Unable to range the shoulder in any meaningful way actively. Decreased range of motion with passive movement. Elbow is fine. Neurovascularly intact distally with good strength, sensation, radial pulse. Course Vital Signs Vital signs: Vital Signs Temperature 97.5 F L 04/16/19 06:48 Pulse 98 H 04/16/19 06:48 Respiratory Rate 16 04/16/19 06:48 Blood Pressure 153/87 H 04/16/19 06:48 Pulse Oximetry 98 04/16/19 06:48 Temperature 97.5 F L 04/16/19 06:48 Temperature Source Temporal Artery Scan 04/16/19 06:48 Pulse 98 H 04/16/19 06:48 Respiratory Rate 16 04/16/19 06:48 Blood Pressure 153/87 H 04/16/19 06:48 Blood Pressure Position Sitting 04/16/19 06:48 Pulse Oximetry 98 04/16/19 06:48 Oxygen Delivery Method Room Air 04/16/19 06:48 Oxygen Flow Rate 0 04/16/19 06:48 Pain Level 10 04/16/19 06:54
[2019-04-16] MEDS: Acetaminophen 500 MG TAB 1000 MG PO (07:10)
--- NOTE | 2019-04-16 07:16 | DI.RAD_ITS ---
EXAM: XR SHOULDER RT COMPLETE 2+V CLINICAL HISTORY: pain/swelling TECHNIQUE: The exam was performed according to the usual protocol. COMPARISON: XR SHOULDER LT COMPLETE 2+V from 04/05/2019 FINDINGS: Five views were obtained. There are severe degenerative changes of acromioclavicular and glenohumera l joints with marked bony deformity and sub chondral sclerosis of the adjacent bones. Marked narrowi ng of the cartilaginous joint space of the glenohumeral joint noted. Marked superior subluxation of humerus which abuts a fragmented acromion. Multiple soft tissue calcifications seen lateral, posteri or and anterior to the humeral head. The findings as described are consistent with chronic degenerat rasheeda changes and calcific periarthritis, it would be difficult to exclude an acute fracture component involving the acromion and if clinically indicated additional evaluation with CT or MRI may be consid ered.
[2019-04-16] MEDS: Lidocaine 5% Patch 1 PATCH (08:07)
== END 2019-04-16 08:07 | disposition home or self-care (01) ==
PROVIDERS: Emergency Provider Emergency Medicine; PCP Family Medicine
DX: S49.91XA Unspecified injury of right shoulder and upper arm, initial encounter (principal); X50.9XXA Other and unspecified overexertion or strenuous movements or postures, initial encounter; N18.9 Chronic kidney disease, unspecified; I12.9 Hypertensive chronic kidney disease with stage 1 through stage 4 chronic kidney disease, or unspecified chronic kidney disease
CPT/HCPCS: 99283; 73030; L3650

== ENCOUNTER → 2019-05-01 13:36 | Outpatient (BNVA) | payer OTHER, MEDICAID, SELFPAY | PROVIDERS: PCP Family Medicine; Referring Provider Family Medicine; Visit Provider Student in an Organized Health Care Education/Training Program | DX: M19.011 Primary osteoarthritis, right shoulder (principal); M75.101 Unspecified rotator cuff tear or rupture of right shoulder, not specified as traumatic; M12.811 Other specific arthropathies, not elsewhere classified, right shoulder; I10 Essential (primary) hypertension | CPT/HCPCS: 20610; 99204; 99215; J1040 ==

== ENCOUNTER 2019-09-09 21:55 | Outpatient (REF) | payer OTHER, MEDICAID, SELFPAY ==
[2019-09-11 10:41] LABS: Lyme Ab w Rflx to Lyme Confirm Negative (Negative)
[2019-09-12 01:29] LABS: Anaplasma phagocytophilum Negative (Negative); B. miyamotoi PCR Negative (Negative); Babesia divergens/MO-1 Negative (Negative); Babesia duncani Negative (Negative); Babesia microti Negative (Negative); Ehrlichia chaffeensis Negative (Negative); Ehrlichia ewingii/canis Negative (Negative); Ehrlichia muris eauclairensis Negative (Negative)
== END 2019-09-09 22:15 ==
LOC: LBN 21:55
PROVIDERS: PCP Family Medicine; Visit Provider Nurse Practitioner Family
DX: W57.XXXA Bitten or stung by nonvenomous insect and other nonvenomous arthropods, initial encounter (principal); T14.8XXA Other injury of unspecified body region, initial encounter
CPT/HCPCS: 87798; 86618

== ENCOUNTER 2020-01-09 22:43 | Emergency (ER) | payer OTHER, MEDICAID, SELFPAY ==
[2020-01-09 22:49] VITALS: BP 163/119; PULSE 80; RESP 16; TEMP 36.4; O2SAT 96
[2020-01-09 22:55] VITALS: RESP 16
--- NOTE | 2020-01-09 23:18 | W.ED.GENAD ---
Discharge Plan Disposition Patient Disposition: HOME Condition: Stable Discharge Details Clinical Impression: Radicular pain of left lower extremity, Degenerative joint disease (DJD) of lumbar spine Primary Care Provider: Azeem Tovar ED Provider: Asher Benoit Home Meds and New Rx's Prescriptions: Continued atenolol 50 mg tablet 50 mg PO DAILY Qty: 90 RF: 4 lisinopril-hydrochlorothiazide 20-25 mg tablet 1 tab PO DAILY Qty: 90 RF: 4 aspirin [Aspirin Low-Strength] 81 MG tablet,chewable 81 mg PO DAILY RF: 0 acetaminophen [Tylenol Extra Strength] 500 mg tablet 1,000 mg PO Q6H PRN (Reason: pain) Qty: 30 RF: 0 Discharge Instructions Instructions: Lumbar Radiculopathy (ED), Degenerative Disc Disease (ED) Additional Instructions: Avoid any activities that exacerbate pain. Take Tylenol as prescribed or [id number] according to label instructions. Use [id number] lidocaine patches. Dose according to label. Please follow-up with your primary care physician. Please contact your primary care physician to arrange follow-up. Return to the ER for any worsening or new concerning symptoms. Referrals: Azeem Tovar [Primary Care Provider] - Medical Decision Making [id number] -- 79-year-old male presents with chief complaint of left anterior lateral thigh pain that seems to be extending from his left lumbar spine, tender to palpation lumbar left paraspinal and over L3-4. Suspect lumbar spinal disc protrusion and nerve root irritation. Consider spinal stenosis. Plan to obtain CT of the lumbar spine given severity of pain tonight. Lidocaine patch was applied and ibuprofen 400mg given. --CT lumbar spine interpreted by radiology: FINDINGS: Vertebrae: No acute skeletal pathology. Severe multilevel degenerative changes of the spine, as manifested by multilevel anterior osteophytes and multilevel decrease in intervertebral disc space. Discs/Spinal canal/Neural foramina: There is mild posterior disc bulging at L2-L3. There is mild bilateral neural foraminal stenosis appreciated at L2-L3. No significant central canal stenosis at this level. No significant disc bulging at L3-L4. There is mild posterior disc bulging appreciated at L4-L5. There is mild to moderate bilateral neural foraminal stenosis present, worse on the right side. There is moderate posterior disc bulging at L5-S1. There is severe bilateral neural foraminal stenosis at L5-S1, accentuated by lateral osteophytosis. Spinal canal appears otherwise patent. No other significant neural foraminal stenosis is noted. Kidneys and ureters: Several partially visualized hyperdense left renal lesions are appreciated, nonspecific, however for which ultrasound correlation is recommended. Soft tissues: No acute soft tissue findings. IMPRESSION: 1. Multilevel degenerative disc disease, as detailed above. 2. Incidental findings as detailed above. Significant bilateral lumbar neuroforaminal stenosis with disc bulging noted likely cause of radicular pain. Results reviewed with the patient. I have encouraged him to avoid any activities that exacerbate pain and to follow-up with his primary care physician. He was encouraged to return immediately for any worsening or new concerning symptoms. HPI General Mode of arrival: ambulatory. Date/Time Provider Initiated Documentation: 01/09/20 22:49. Limitations to Documentation: no limitations. Information obtained by: patient. HPI Narrative: 79-year-old male presents with chief complaint of left leg pain. Patient notes he has had fairly persistent pain in his left anterior lateral thigh over the past 1 week. Pain has worsened since onset. Tonight he was asleep and woke up with acute severe exacerbation of this pain. Pain was severe with no modifiers. Pain felt like a pinching sensation in his thigh. He does note the pain seems to radiate to his lateral hip to the back. 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 He has no associated bowel or bladder dysfunction. Related Data Home Medications Medication Instructions Recorded Confirmed aspirin [Aspirin Low-Strength] 81 mg PO DAILY tab-cap 06/23/15 01/09/20 acetaminophen [Tylenol Extra 1,000 mg PO Q6H PRN #30 tab 04/16/19 01/09/20 Strength] atenolol 50 mg tablet 50 mg PO DAILY #90 tab-cap 06/04/19 01/09/20 lisinopril 20 1 tab PO DAILY #90 tab-cap 06/04/19 01/09/20 mg-hydrochlorothiazide 25 mg tablet Previous Rx's Medication Instructions Recorded acetaminophen [Tylenol Extra 1,000 mg PO Q6H PRN #30 tab 04/16/19 Strength] atenolol 50 mg tablet 50 mg PO DAILY #90 tab-cap 06/04/19 lisinopril 20 1 tab PO DAILY #90 tab-cap 06/04/19 mg-hydrochlorothiazide 25 mg tablet Allergies Allergy/AdvReac Type Severity Reaction Status Date / Time simvastatin AdvReac Severe Hallucinati Unverified 01/09/20 22:53 ons pravastatin AdvReac Mild Nightmares Unverified 01/09/20 22:53 General Stated Complaint: Vascular TERRELL: 3 Review of Systems All systems reviewed & are unremarkable except as noted in HPI and below Constitutional Constitutional: Denies fever(s) Gastrointestinal Gastrointestinal: Denies abdominal pain Musculoskeletal Musculoskeletal: Reports arthralgias (Arthritis) and Denies numbness Integumentary/Breasts Skin/Breast: Denies rash Neurologic Neurologic: Denies numbness and Denies paresthesias [facility] Medical History (Updated 01/10/20 @ 00:03 by Asher Benoit MD) Atherosclerosis of [place] coronary artery [place] 1981 MPI 2012 no ischemia. 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 Diabetes Paternal Grandfather , 69 Diabetes Heart disease Stroke Maternal Grandmother Heart disease Paternal Grandmother Heart disease Son No problems noted. Son No problems noted. Social History Smoking/Tobacco Use Status: Former Tobacco Use Quit Date: 03/27/79 Tobacco: How many years used: 20 Second Hand Exposure: Yes Alcohol Intake: former Drug use: Never Substance use type: does not use Caregiver/Support person: No Communication Needs: None Pets and animals: Yes Pets and animals: dog(s) Do you think of yourself as: straight/heterosexual Current gender identity: male What is your relationship status?: How often do you talk on the phone with friends or family?: once per week How often do you get together with friends or relatives?: twice per week How often do you attend confucianist or hoahaoism services?: decline to answer Do you belong to any clubs or organized social groups?: no Panel score (0-1 are the most socially isolated patients): 1 What type of physical activity do you participate in: other Details: work Duration: > 90 minutes/day Frequency: 5-6 times per week Danica/Sabianist: None Special danica needs: No Seatbelt use: always Helmet use: No Drive intox or ride w/intox [employer] driver: No Do you feel safe at home: Yes Do you feel safe in your relationship?: Yes Exam Const General: cooperative and no acute distress HENMT Mouth: moist mucous membranes Eyes Conjunctivae: normal conjunctivae Sclera: normal sclerae Resp Auscultation: clear to auscultation bilaterally, no rales, no rhonchi and no wheezes Cardio Rate: regular rate and not tachycardic Rhythm: regular rhythm GI Palpation: soft, not firm, no guarding, no masses, not rigid and nontender Back/Spine/Pelvis Thoracic/Lumbar Spine: paraspinal tenderness (Left lower lumbar) and lumbar spinal tenderness (L4 tender palpation) Pelvis: no pain with lateral compression Skin General skin exam: no rashes or lesions noted Neuro General: patient alert, patient awake, patient oriented x3 and tone normal Extrem General: no calf tenderness and no edema Psych Appearance: grossly normal Mental Status: mental status grossly normal Course Vital Signs Vital signs: Vital Signs Temperature 36.4 C L 01/09/20 22:49 Pulse 80 01/09/20 22:49 Respiratory Rate 16 01/09/20 22:49 Blood Pressure 163/119 H 01/09/20 22:49 Pulse Oximetry 96 01/09/20 22:49 Temperature 36.4 C L 01/09/20 22:49 Temperature Source Skin 01/09/20 22:49 Pulse 80 01/09/20 22:49 Respiratory Rate 16 01/09/20 22:55 Respiratory Effort Non-Labored 01/09/20 22:55 Respiratory Depth Normal 01/09/20 22:55 Respiratory Pattern Normal 01/09/20 22:55 Blood Pressure 163/119 H 01/09/20 22:49 Pulse Oximetry 96 01/09/20 22:49 Pain Level 8 01/09/20 22:55
[2020-01-09] MEDS: Lidocaine 5% Patch 1 PATCH TP (23:26)
[2020-01-09] MEDS: Ibuprofen 400 MG TAB PO (23:26)
--- NOTE | 2020-01-09 23:39 | DI.CT_ITS ---
EXAM: CT LUMBAR SPINE WO CLINICAL HISTORY: pain L4 with radiation to anterior thigh. TECHNIQUE: Imaging Protocol: Axial computed tomography images with coronal and sagittal reformatted images were created and reviewed COMPARISON: CT CT CHEST PE CTA from 07/05/2018 FINDINGS: Bones: The last intervertebral disc space is designated the L5/S1 level for the numbering purpose of this examination. The vertebral body heights are well maintained. Alignment is satisfactory. No frac ture is seen. T12-L1: No disc herniations or bulges are present. No significant central spinal canal or neural for aminal stenosis. L1-2: There is a vacuum disc. Endplate degenerative changes are seen. No significant central spina l canal or neural foraminal stenosis. L2-3: There is a vacuum disc. Endplate osteophytes are noted. There is a mild diffuse disc bulge. No significant central spinal canal stenosis is seen. Mild bilateral neural foraminal narrowing is present. L3-4: There is a vacuum disc. There are endplate osteophytes. There is a mild diffuse disc bulge. There are degenerative changes of the facets. There is mild narrowing of the central spinal canal a nd neural foramen. L4-5: There is a vacuum disc. There are endplate osteophytes. Degenerative changes of the facets a re noted. There is mild narrowing of the central spinal canal. Mild narrowing of the neural foramen is seen worse on the right. L5-S1: There is a vacuum disc. There are endplate osteophytes. No significant central spinal canal stenosis. Severe bilateral neural foraminal stenosis is present. Soft Tissues: Degenerative changes are seen at the sacroiliac joints. The hyperdense renal lesion a t the posterior left kidney was present on the prior examination of this chest on 07/05/2018. A parti ally visualized hyperdense lesion is seen in the inferior pole of the left kidney. These may be furt her evaluated with a CT scan of the abdomen or ultrasound. IMPRESSION: 1. No acute fracture or subluxation in the lumbar spine. 2. Multilevel degenerative changes in the lumbar spine causing neural foraminal stenosis and central spinal canal stenosis as described above. RADIATION DOSE DELIVERED: 516.22mGy.cm Total DLP 516.22mGy.cm Total DLP DATA REPOSITORY: All CT scans at this facility are submitted to the National Radiology Data Registry (NRDR) Dose Index Registry (DIR) with the [employer] (A[employer]). RADIATION OPTIMIZATION: All CT scans at this facility use at least one of these dose optimization te chniques: automated exposure control; mA and/or kV adjustment per patient size (includes targeted exa ms where dose is matched to clinical indication); or iterative reconstruction.
--- NOTE | 2020-01-09 23:58 | DI.VRAD_ITS ---
PROCEDURE INFORMATION: Exam: CT Lumbar Spine Without Contrast Exam date and time: 01/09/2020 11:32 PM Age: 79 years old Clinical indication: Low back pain; Additional info: L4 pain with radiation to anterior thigh TECHNIQUE: Imaging protocol: Computed tomography images of the lumbar spine without contrast. Radiation optimization: All CT scans at this facility use at least one of these dose optimization techniques: automated exposure control; mA and/or kV adjustment per patient size (includes targeted exams where dose is matched to clinical indication); or iterative reconstruction. COMPARISON: No relevant prior studies available. FINDINGS: Vertebrae: No acute skeletal pathology. Severe multilevel degenerative changes of the spine, as manifested by multilevel anterior osteophytes and multilevel decrease in intervertebral disc space. Discs/Spinal canal/Neural foramina: There is mild posterior disc bulging at L2-L3. There is mild bilateral neural foraminal stenosis appreciated at L2-L3. No significant central canal stenosis at this level. No significant disc bulging at L3-L4. There is mild posterior disc bulging appreciated at L4-L5. There is mild to moderate bilateral neural foraminal stenosis present, worse on the right side. There is moderate posterior disc bulging at L5-S1. There is severe bilateral neural foraminal stenosis at L5-S1, accentuated by lateral osteophytosis. Spinal canal appears otherwise patent. No other significant neural foraminal stenosis is noted. Kidneys and ureters: Several partially visualized hyperdense left renal lesions are appreciated, nonspecific, however for which ultrasound correlation is recommended. Soft tissues: No acute soft tissue findings. IMPRESSION: 1. Multilevel degenerative disc disease, as detailed above. 2. Incidental findings as detailed above. Dictated and Authenticated by: Gregorio Irizarry MD. Ordering:GREGORY Sterling MD
[2020-01-10 00:08] VITALS: BP 171/80; PULSE 70; RESP 16; O2SAT 97
== END 2020-01-10 00:14 | disposition home or self-care (01) ==
LOC: ER 01-10 00:30
PROVIDERS: Emergency Provider Student in an Organized Health Care Education/Training Program; PCP Family Medicine
DX: M51.16 Intervertebral disc disorders with radiculopathy, lumbar region (principal); I12.9 Hypertensive chronic kidney disease with stage 1 through stage 4 chronic kidney disease, or unspecified chronic kidney disease; N18.9 Chronic kidney disease, unspecified
CPT/HCPCS: 99284; 72131

== ENCOUNTER 2020-01-14 04:07 | Emergency (ER) | payer OTHER, MEDICAID, SELFPAY ==
[2020-01-14 04:13] VITALS: BP 155/85; PULSE 80; RESP 16; TEMP 36.4; O2SAT 97
--- NOTE | 2020-01-14 04:30 | W.ED.GENAD ---
Discharge Plan Disposition Patient Disposition: HOME Condition: Stable Discharge Details Clinical Impression: Degenerative joint disease (DJD) of lumbar spine Primary Care Provider: Azeem Tovar ED Provider: Job Arita Home Meds and New Rx's Prescriptions: Continued atenolol 50 mg tablet 50 mg PO DAILY Qty: 90 RF: 4 lisinopril-hydrochlorothiazide 20-25 mg tablet 1 tab PO DAILY Qty: 90 RF: 4 aspirin [Aspirin Low-Strength] 81 MG tablet,chewable 81 mg PO DAILY RF: 0 acetaminophen [Tylenol Extra Strength] 500 mg tablet 1,000 mg PO Q6H PRN (Reason: pain) Qty: 30 RF: 0 Discharge Instructions Instructions: Back Pain (ED) Additional Instructions: follow up with your primary care provider within 2 weeks if pain continues if you feel more ill, have severe worsening pain or fevers return to the emergency department. Also return for difficulty urinating Stand Alone Forms: Physical Therapy Referral Medical Decision Making 79 yo male with hx of htn, hld, ckd, who was seen on 01/08 with low back pain radiating to the left leg and had CT lumbar spine done showing severe DJD comes in with continued pain. DEnies difficulty urinating, weakness, paresthesias, fevers, chills. Has been taking tylenol q 6 hours otherwise no other meds, hasn't used a lidocaine path in over a day. Denies any new falls. HAs pain in left lower lumbar region, no warmth, redness, intact distal pulses and sensation, normal reflexes, no saddle anesthesia. Has no findings to indicate sea, cauda equina and do not feel emergent MRI indicated and no findings to suggest acute fracture or osteo and do not feel repeat imaging indicated. I discussed using lidocaine patches daily which he didn't feel strongly for and also recommended PT but he also didn't feel strongly about this as it hasn't helped in the past. Advised if this continues will likely need outpatient MRI, will try a single dose of toradol and lidocaine patch and reassess. pt remains stable, comfortable appearing sitting up on edge of bed in no distress with stable exam. Will give PT referral, stressed importance of pcp f/u and return precautions given Differential Diagnosis Differential Diagnosis: djd, muscle spasm, disc herniation HPI General Mode of arrival: ambulatory. Date/Time Provider Initiated Documentation: 01/14/20 04:09. Limitations to Documentation: no limitations. Information obtained by: patient. History of Present Illness 79 year old M presents to the emergency department with the chief complaint of low back pain, described as moderate, Patient started experiencing this week(s) (1) and it has been constant. No relieving factors improve symptom(s), No exacerbating factors reported . Related Data Home Medications Medication Instructions Recorded Confirmed aspirin [Aspirin Low-Strength] 81 mg PO DAILY tab-cap 06/23/15 01/14/20 acetaminophen [Tylenol Extra 1,000 mg PO Q6H PRN #30 tab 04/16/19 01/14/20 Strength] atenolol 50 mg tablet 50 mg PO DAILY #90 tab-cap 06/04/19 01/14/20 lisinopril 20 1 tab PO DAILY #90 tab-cap 06/04/19 01/14/20 mg-hydrochlorothiazide 25 mg tablet Previous Rx's Medication Instructions Recorded acetaminophen [Tylenol Extra 1,000 mg PO Q6H PRN #30 tab 04/16/19 Strength] atenolol 50 mg tablet 50 mg PO DAILY #90 tab-cap 06/04/19 lisinopril 20 1 tab PO DAILY #90 tab-cap 06/04/19 mg-hydrochlorothiazide 25 mg tablet Allergies Allergy/AdvReac Type Severity Reaction Status Date / Time simvastatin AdvReac Severe Hallucinati Verified 01/10/20 08:51 ons pravastatin AdvReac Mild Nightmares Verified 01/10/20 08:51 General Stated Complaint: Orthopedic TERRELL: 4 Review of Systems All systems reviewed & are unremarkable except as noted in HPI and below Constitutional Constitutional: Denies chills, Denies fever(s) and Denies weakness Cardiovascular Cardiovascular: Denies chest pain and Denies dyspnea Respiratory Respiratory: Denies cough and Denies dyspnea Gastrointestinal Gastrointestinal: Denies abdominal pain, Denies nausea and Denies vomiting Musculoskeletal Musculoskeletal: Denies joint swelling Neurologic Neurologic: Denies weakness Psychiatric Psychiatric: Denies depression [facility] Medical History (Updated 01/14/20 @ 04:35 by Job Arita MD) Atherosclerosis of [place] coronary artery [place] 1981 MPI 2012 no ischemia. 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 Diabetes Paternal Grandfather , 69 Diabetes Heart disease Stroke Maternal Grandmother Heart disease Paternal Grandmother Heart disease Son No problems noted. Son No problems noted. Social History Smoking/Tobacco Use Status: Former Tobacco Use Quit Date: 03/27/79 Tobacco: How many years used: 20 Second Hand Exposure: Yes Alcohol Intake: former Drug use: Never Substance use type: does not use Caregiver/Support person: No Communication Needs: None Pets and animals: Yes Pets and animals: dog(s) Do you think of yourself as: straight/heterosexual Current gender identity: male What is your relationship status?: How often do you talk on the phone with friends or family?: once per week How often do you get together with friends or relatives?: twice per week How often do you attend evangelical or taoism services?: decline to answer Do you belong to any clubs or organized social groups?: no Panel score (0-1 are the most socially isolated patients): 1 What type of physical activity do you participate in: other Details: work Duration: > 90 minutes/day Frequency: 5-6 times per week Danica/Samaritan: None Special danica needs: No Seatbelt use: always Helmet use: No 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 Do you feel safe at home: Yes Do you feel safe in your relationship?: Yes Exam Const General: no acute distress Orientation: alert HENMT Head: normal to inspection Ears: external ears normal General nose exam: external nose normal Mouth: moist mucous membranes Eyes General: appearance normal, both eyes and all related structures Neck Neck: normal visual inspection Resp Effort & Inspection: normal respiratory effort and able to speak in complete sentences Cardio Rate: regular rate Back/Spine/Pelvis Back: no CVA tenderness Skin General skin exam: no rashes or lesions noted Neuro General: patient alert and patient oriented x3 Extrem General: normal to inspection Psych Mental Status: mental status grossly normal Course Vital Signs Vital signs: Vital Signs Temperature 36.4 C L 01/14/20 04:13 Pulse 80 01/14/20 04:13 Respiratory Rate 16 01/14/20 04:13 Blood Pressure 155/85 H 01/14/20 04:13 Pulse Oximetry 97 01/14/20 04:13 Temperature 36.4 C L 01/14/20 04:13 Temperature Source Skin 01/14/20 04:13 Pulse 80 01/14/20 04:13 Respiratory Rate 16 01/14/20 04:13 Respiratory Effort 01/14/20 04:16 Blood Pressure 155/85 H 01/14/20 04:13 Blood Pressure Position Sitting 01/14/20 04:13 Pulse Oximetry 97 01/14/20 04:13 Oxygen Delivery Method Room Air 01/14/20 04:13 Oxygen Flow Rate 0 01/14/20 04:13 Pain Level 9 01/14/20 04:13 Comment 01/14/20 04:13
[2020-01-14] MEDS: Lidocaine 5% Patch 1 PATCH TP (04:34)
[2020-01-14] MEDS: Ketorolac 15 MG/ML VIAL IM (04:34)
== END 2020-01-14 05:25 | disposition home or self-care (01) ==
PROVIDERS: Emergency Provider Emergency Medicine; PCP Family Medicine
DX: M54.5 Low back pain (principal); I12.9 Hypertensive chronic kidney disease with stage 1 through stage 4 chronic kidney disease, or unspecified chronic kidney disease; N18.9 Chronic kidney disease, unspecified
CPT/HCPCS: 96372; 99284; 99283; J1885

== ENCOUNTER 2020-01-25 06:22 | Emergency (ER) | payer OTHER, MEDICAID, SELFPAY ==
[2020-01-25 06:27] VITALS: BP 187/95; PULSE 87; RESP 24; TEMP 36.7; O2SAT 95
--- NOTE | 2020-01-25 06:58 | W.ED.GENAD ---
Discharge Plan Disposition Patient Disposition: HOME Condition: Good Discharge Details Clinical Impression: Back pain Primary Care Provider: Azeem Tovar ED Provider: Rafael Gutierrez Home Meds and New Rx's Prescriptions: New prednisone 50 MG tablet 50 mg PO DAILY Qty: 5 RF: 0 Continued atenolol 50 mg tablet 50 mg PO DAILY Qty: 90 RF: 4 lisinopril-hydrochlorothiazide 20-25 mg tablet 1 tab PO DAILY Qty: 90 RF: 4 aspirin [Aspirin Low-Strength] 81 MG tablet,chewable 81 mg PO DAILY RF: 0 tizanidine 2 mg tablet 2 mg PO TID PRN (Reason: muscle spasticity) Qty: 20 RF: 0 acetaminophen [Tylenol Extra Strength] 500 mg tablet 1,000 mg PO Q6H PRN (Reason: pain) Qty: 30 RF: 0 Discharge Instructions Instructions: Back Pain (ED) Additional Instructions: At this time your symptoms are still concerning for mild peripheral nerve pain and are not consistent with cauda equina syndrome or cord compression. Please continue to take Tylenol, but take 1000 mg every 6 hours. Please also take the steroid daily as directed. Please contact your family doctor for potential further nonemergent MRI. If you notice any worsening of your symptoms, or any new symptoms such as numbness or tingling in your groin, difficulty urinating or having a bowel movement, vomiting, diarrhea, fever, chills, shortness of breath, chest pain, numbness, weakness, or fainting , please return immediately to the emergency department for reevaluation. Please follow up with your primary care provider as soon as possible for reassessment and reevaluation. As always, it was a pleasure participating in your medical care today. Referrals: Azeem Tovar. [Primary Care Provider] - Discharge Data Discharge Date/Time-TO BE ENTERED AT DEPARTURE: 01/25/20 07:12 Medical Decision Making 79-year-old male with a past medical history of hypertension, arthritis, high cholesterol, DJD, presents today for evaluation of left lateral thigh and back pain. Patient was here 10 days ago for evaluation of pain on the lateral aspect of his left thigh. Prior to that on 01/09/2020 the patient had a CT scan of his lumbar spine at that time showed Multilevel degenerative changes in the lumbar spine causing neural foraminal stenosis and central spinal canal stenosis. Patient was prescribed NSAIDs Lidoderm patch and was discharged home as he showed no signs whatsoever cauda equina syndrome. Patient states his symptoms improved with Tylenol and Lidoderm patches however last night they are notably worse. He denies any particular aggravating factor. He returns again today with the return of the pain. Patient denies any saddle anesthesia, numbness or tingling in the groin, change in sensation when wiping. Patient denies any bowel or bladder incontinence, leakage, or retention. Patient denies any continued weakness in the lower extremities. No other complaints at this time. Physical exam demonstrates good sensation throughout, no evidence of cauda equina syndrome. Patient does have a small patch that has slightly atypical sensation on the anterior component of the thigh which she describes as being from previous shingles. He states this is not new. Other than that he has normal sensation throughout, normal rectal tone, no signs of midline tenderness or other signs or symptoms concerning for significant cord impingement. At this time with no new trauma, or other concerning abnormalities in conjunction with the recent CT scan, and no significant change in the nature of his symptoms I do not see any indication at this time for emergent MRI, additionally it is the weekend MRI is not available. I do feel that the patient would benefit from a steroid burst, maximizing acetaminophen use, and close follow-up for potential outpatient nonemergent MRI imaging with his PCP. We will give a single shot of Toradol as the patient states that he is tolerated this well. Discussed red flags for which to return. I have extensively reviewed the treatment plan and discharge instructions with the patient. I have addressed all patient concerns at this time. The patient was made aware of what symptoms to monitor for that would warrant a return to the emergency department. Discussed the plan with the patient, they demonstrate verbal understanding and agreement with our assessment and plan at this time. HPI General Date/Time Provider Initiated Documentation: 01/25/20 06:31. HPI Narrative: 79-year-old male with a past medical history of hypertension, arthritis, high cholesterol, DJD, presents today for evaluation of left lateral thigh and back pain. Patient was here 10 days ago for evaluation of pain on the lateral aspect of his left thigh. Prior to that on 01/09/2020 the patient had a CT scan of his lumbar spine at that time showed Multilevel degenerative changes in the lumbar spine causing neural foraminal stenosis and central spinal canal stenosis. Patient was prescribed NSAIDs Lidoderm patch and was discharged home as he showed no signs whatsoever cauda equina syndrome. Patient states his symptoms improved with Tylenol and Lidoderm patches however last night they are notably worse. He denies any particular aggravating factor. He returns again today with the return of the pain. Patient denies any saddle anesthesia, numbness or tingling in the groin, change in sensation when wiping. Patient denies any bowel or bladder incontinence, leakage, or retention. Patient denies any continued weakness in the lower extremities. No other complaints at this time. Related Data Home Medications Medication Instructions Recorded Confirmed aspirin [Aspirin Low-Strength] 81 mg PO DAILY tab-cap 06/23/15 01/25/20 acetaminophen [Tylenol Extra 1,000 mg PO Q6H PRN #30 tab 04/16/19 01/25/20 Strength] atenolol 50 mg tablet 50 mg PO DAILY #90 tab-cap 06/04/19 01/25/20 lisinopril 20 1 tab PO DAILY #90 tab-cap 06/04/19 01/25/20 mg-hydrochlorothiazide 25 mg tablet tizanidine 2 mg tablet 2 mg PO TID PRN #20 tab 01/15/20 01/25/20 prednisone 50 mg PO DAILY #5 tab 01/25/20 Previous Rx's Medication Instructions Recorded acetaminophen [Tylenol Extra 1,000 mg PO Q6H PRN #30 tab 04/16/19 Strength] atenolol 50 mg tablet 50 mg PO DAILY #90 tab-cap 06/04/19 lisinopril 20 1 tab PO DAILY #90 tab-cap 06/04/19 mg-hydrochlorothiazide 25 mg tablet tizanidine 2 mg tablet 2 mg PO TID PRN #20 tab 01/15/20 prednisone 50 mg PO DAILY #5 tab 01/25/20 Allergies Allergy/AdvReac Type Severity Reaction Status Date / Time simvastatin AdvReac Severe Hallucinati Verified 01/25/20 06:34 ons pravastatin AdvReac Mild Nightmares Verified 01/25/20 06:34 General Stated Complaint: Nk/Back Pain TERRELL: 4 Review of Systems All systems reviewed & are unremarkable except as noted in HPI and below [facility] Medical History Atherosclerosis of [place] coronary artery [place] 1982 MPI 2012 no ischemia. 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 Diabetes Paternal Grandfather , 69 Diabetes Heart disease Stroke Maternal Grandmother Heart disease Paternal Grandmother Heart disease Son No problems noted. Son No problems noted. Social History Smoking/Tobacco Use Status: Former Tobacco Use Quit Date: 03/27/79 Tobacco: How many years used: 20 Second Hand Exposure: Yes Smoking risk assessment performed?: Yes Alcohol Intake: former Drug use: Never Substance use type: does not use Caregiver/Support person: No Communication Needs: None Pets and animals: Yes Pets and animals: dog(s) Do you think of yourself as: straight/heterosexual Current gender identity: male What is your relationship status?: How often do you talk on the phone with friends or family?: once per week How often do you get together with friends or relatives?: twice per week How often do you attend temple or spiritism services?: decline to answer Do you belong to any clubs or organized social groups?: no Panel score (0-1 are the most socially isolated patients): 1 What type of physical activity do you participate in: other Details: work Duration: > 90 minutes/day Frequency: 5-6 times per week Danica/Muslim: None Special danica needs: No Seatbelt use: always Helmet use: No 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 3.ENT: Atraumatic external nose and ears. Moist MM. Neck: Symmetric, trachea midline, No thyromegaly. 4.CVS: +S1/S2, No murmurs or gallops. Peripheral pulses 2+ and equal in all extremities. Brisk capillary refill in all extremities. 5.RESP: Unlabored respiratory effort. Clear to auscultation bilaterally. No wheezes rales or rhonchi 6.GI: Soft, Nontender/Nondistended, No hepatosplenomegaly. No guarding or rebound. 7.MSK: Normocephalic/Atraumatic, Extremities w/o deformity or ttp No cyanosis or clubbing, Normal movement of all extremities. No midline tenderness to palpation over the CTLS spine. Normal ROM in flexion, extension, side bend, and rotation. Patient has +5 out of 5 strength in the lower extremities in dorsiflexion and plantarflexion, knee flexion and extension, hip flexion and extension. Normal strength for dorsiflexion and plantar flexion of the great toe bilaterally. There is +2 over 2 dorsalis pedis pulses bilaterally. There is normal sensation to the skin with light touch at the foot, knee, and hip. Normal saddle sensation. Good sensation over the deep sural nerve area bilaterally. Rectal exam demonstrates good rectal tone and good perirectal sensation. Reflexes are +2 over 4 in the patellar reflex bilaterally. No pain with straight leg raise of the left or right. 8.Skin: Warm, Dry. No rashes or lesions. 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 Sensation grossly intact, no focal neurologic deficits. 10.Psych: (AAO) x3. Appropriate mood and affect Course Vital Signs Vital signs: Vital Signs Temperature 36.7 C 01/25/20 06:27 Pulse 87 01/25/20 06:27 Respiratory Rate 24 01/25/20 06:27 Blood Pressure 187/95 H 01/25/20 06:27 Pulse Oximetry 95 01/25/20 06:27 Temperature 36.7 C 01/25/20 06:27 Temperature Source Temporal Artery Scan 01/25/20 06:27 Pulse 87 01/25/20 06:27 Respiratory Rate 24 01/25/20 06:27 Respiratory Effort Non-Labored 01/25/20 06:32 Blood Pressure 187/95 H 01/25/20 06:27 Pulse Oximetry 95 01/25/20 06:27 Oxygen Delivery Method Room Air 01/25/20 06:27 Oxygen Flow Rate 0 01/25/20 06:27 Pain Level 10 01/25/20 06:40
[2020-01-25] MEDS: Ketorolac 30 MG/ML VIAL IM (07:00)
[2020-01-25] MEDS: predniSONE 20 MG TAB 60 MG PO (07:00)
== END 2020-01-25 07:12 | disposition home or self-care (01) ==
PROVIDERS: Emergency Provider Student in an Organized Health Care Education/Training Program; PCP Family Medicine
DX: M54.5 Low back pain (principal); I12.9 Hypertensive chronic kidney disease with stage 1 through stage 4 chronic kidney disease, or unspecified chronic kidney disease; N18.9 Chronic kidney disease, unspecified
CPT/HCPCS: 96372; 99284; J1885; J7512

== ENCOUNTER 2020-08-07 10:35 | Outpatient (CLI) | payer OTHER, MEDICAID, SELFPAY ==
--- NOTE | 2020-08-07 10:30 | RT.EKG_ITS ---
APPROVED REPORT Exam: Resting ECG Reason for Exam: Palpitations Patient Location: O HR:78 bpm ECG Measurements Heart Rate 78 AXIS PA 167 P 53 QRSd 101 QRS 41 QT 410 T 44 QTc 468 Conclusion Sinus rhythm...normal P axis, V-rate 60- 99 Ventricular trigeminy...trigeminy string>6 w/ V complexes
== END 2020-08-07 10:36 | disposition home or self-care (01) ==
LOC: DI.CM 10:45
PROVIDERS: PCP Family Medicine; Visit Provider Family Medicine
DX: R00.2 Palpitations (principal); I49.40 Unspecified premature depolarization
CPT/HCPCS: 93010

== ENCOUNTER 2020-08-07 11:14 | Outpatient (CLI) | payer OTHER, MEDICAID, SELFPAY ==
[2020-08-07 12:50] LABS: HCT 42.8 % (40.0-50.0); HGB 14.3 g/dL (13.5-17.5); MCHC 33.4 % (32.0-36.0); MCV 92.8 fL (80-95); MPV 11.1 fL (8.0-11.0); Platelet Count 267 10^3/uL (130-400); RBC 4.61 10^6/uL (4.36-5.78); WBC 10.95 10^3/uL (4.4-10.8)
[2020-08-07 13:39] LABS: ALT 30 U/L (16-63); AST 23 U/L (15-37); Albumin 3.9 g/dL (3.4-5.0); Alkaline Phosphatase 75 U/L (46-116); Anion Gap 10.7 mmol/L (3-11); BUN 24 mg/dL (7-18); Bilirubin, Total 0.4 mg/dL (0.2-1.0); CO2 24.3 mmol/L (21.0-32.0); CREATININE 1.2 mg/dL (0.70-1.30); Chloride 106 mmol/L (98-107); Glucose 94 mg/dL (74-106); Potassium 4.6 mmol/L (3.5-5.1); Sodium 141 mmol/L (136-145); Total Protein 6.9 g/dL (6.4-8.2)
== END 2020-08-07 11:15 | disposition home or self-care (01) ==
LOC: LOS 11:14
PROVIDERS: PCP Family Medicine; Referring Provider Family Medicine; Visit Provider Family Medicine
DX: R10.9 Unspecified abdominal pain (principal); E03.9 Hypothyroidism, unspecified; D64.9 Anemia, unspecified
CPT/HCPCS: 36415; 80053; 85027; 84443

== ENCOUNTER 2020-08-17 02:35 | Outpatient (RCR) | payer OTHER, MEDICAID, SELFPAY ==
--- NOTE | 2020-08-17 08:00 | HOLTER_ITS ---
APPROVED REPORT Conclusion This is a 48-hour monitor ordered for indication of palpitations. The patient was in normal sinus rhythm for the majority of the recording with an average heart rate o f 71 bpm. There were no episodes of ventricular tachycardia and frequent (7%) PVCs. There were no episodes of supraventricular tachycardia and rare PACs. There were no episodes of atrial fibrillation, no pauses greater than 3 seconds and no evidence of hi gh degree heart block. There was 1 patient triggered event associated with singular PVCs and a couplet.
== END 2020-08-24 23:59 | disposition home or self-care (01) ==
LOC: RT 02:35
PROVIDERS: PCP Family Medicine; Visit Provider Family Medicine
DX: R00.2 Palpitations (principal); I49.3 Ventricular premature depolarization
CPT/HCPCS: 93227; 93225; 93226

== ENCOUNTER 2021-05-07 01:16 | Outpatient (CLI) | payer MEDICARE, MEDICAID, SELFPAY ==
--- NOTE | 2021-05-07 06:45 | DI.US_ITS ---
Exam(s) US CAROTID EXAM: US CAROTID CLINICAL HISTORY: general weakness; hx of carotid stenosis,I65.23. TECHNIQUE: Ultrasound carotids performed using grayscale, color-flow, and spectral Doppler imaging. COMPARISON: US CAROTID ULTRASOUND from 07/03/2015 FINDINGS: RIGHT CAROTID ARTERY: Plaque: There is atherosclerosis seen in the common carotid artery, carotid bulb and proximal interna l carotid artery. Velocity elevation: None. LEFT CAROTID ARTERY: Plaque: Calcific plaque is seen in the common carotid artery, carotid bulb and proximal internal paez tid artery. Velocity elevation: None. VERTEBRAL ARTERIES: Antegrade flow. Measurements: R Bulb: 78.4cm/s PS / 14.1cm/s ED R CCA: 102.2cm/s PS / 23.8cm/s ED R ECA: 109.9cm/s PS / 16.7cm/s ED R ICA Prox: 90cm/s PS /18cm/s ED R ICA Mid: 73.3cm/s PS / 21.9cm/s ED R ICA Distal: 80.3cm/s PS /19.3cm/s ED R Vert: 73.3cm/s PS / 10.3cm/s ED R SVR: 0.88 R DVR: 0.76 L Bulb: 77.1cm/s PS /10.9cm/s ED L CCA: 102.8cm/s PS / 18.6cm/s ED L ECA: 106.7cm/s PS /21.2cm/s ED L ICA Prox:84.2cm/s PS / 18cm/s ED L ICA Mid: 98.3cm/sPS / 23.1cm/s ED L ICA Distal: 104.1cm/s PS / 25.7cm/s ED L Vert: 36.4cm/s PS / 14.5cm/s ED L SVR: 1.01 L DVR: 1.38 IMPRESSION: No evidence for hemodynamically significant carotid stenosis. Criteria for Carotid Stenosis: Normal: ICA PSV <125 cm/s no plaque or intimal thickening is visible. <50% stenosis: ICA PSV <125 cm/s and plaque or intimal thickening is visible. 50-69% stenosis: ICA PSV is 125-250 cm/s and plaque is visible. >70% stenosis to near occlusion: ICA PSV >250 cm/s with visible plaque and luminal narrowing. DATA REPOSITORY:
== END 2021-05-07 01:36 ==
PROVIDERS: PCP Family Medicine; Visit Provider Family Medicine
DX: I65.23 Occlusion and stenosis of bilateral carotid arteries (principal); M62.81 Muscle weakness (generalized)
CPT/HCPCS: 93880

== ENCOUNTER 2021-05-12 10:31 | Outpatient (CLI) | payer MEDICARE, MEDICAID, SELFPAY ==
--- NOTE | 2021-05-12 10:30 | RT.EKG_ITS ---
APPROVED REPORT Exam: Resting ECG Reason for Exam: chest pain Patient Location: O HR:72 bpm ECG Measurements Heart Rate 72 AXIS OR 161 P 110 QRSd 100 QRS 90 QT 417 T 134 QTc 450 Conclusion Right and left arm electrode reversal, interpretation assumes no reversal Sinus rhythm...normal P axis, V-rate 60- 99 Multiple ventricular premature complexes...V complexes w/ short R-R intervls Low voltage, extremity leads...all extremity leads <0.5mV
== END 2021-05-12 10:32 | disposition home or self-care (01) ==
LOC: DI.CM 10:34
PROVIDERS: PCP Family Medicine; Visit Provider Family Medicine
DX: R07.89 Other chest pain (principal)
CPT/HCPCS: 93010

== ENCOUNTER 2021-05-27 02:17 | Outpatient (CLI) | payer MEDICARE, MEDICAID, SELFPAY ==
--- NOTE | 2021-05-27 06:45 | DI.NM_ITS ---
APPROVED REPORT Exam: Exercise Treadmill Patient Location: Out-Patient Room/Bed: Stress Nurse: Aurora Menjivar RN Ordering Provider:ANTONIO PATIÑO, Contact Number: [phone] BMI: 23.40 Baseline Rhythm: Sinus Rhythm Comment: Frequent multifocal PVCs Indications: Chest pain Medical History Medical History: Hypertension, hyperlipidemia, CVD, palpitations, gerd, anxiety, dizziness Cardiac Medications: Atenolol, lisinopril, nitroglycerin Allergies: Simvastatin, pravastatin Cardiac Risk Factors: Hypertension, hyperlipidemia, smoker (former), CVD, family hx Previous Cardiac Procedures: Pt reports hx [facility] (1981) Pretest Chest Pain Characteristics: None Exercise History: Sedentary Physical Disabilities: None Lung Sounds: Clear to auscultation Heart Sounds: Regular Stress Test Details Test: Exercise stress testing was performed using a Vasquez protocol. Nuclear Acquisition: Rest Tc-99m/Stress Tc-99m 1 day Rest Isotope: Tc-99m Sestamibi. Dose: 10.4 Date: 05/27/2021 Injection Time: 0830 Stress Isotope: Tc-99m Sestamibi. Dose: 31.9 Date: 05/27/2021 Injection Time: 1005 HR Resting HR Supine: 72 bpm Max Heart Rate (APMHR): 140.455736 bpm Resting HR Standin bpm Target HR (85% APMHR): 119.767974 bpm Max HR Achieved: 160 bpm % of APMHR: 114.29 Recovery HR: 87 bpm HR response to stress: Normal HR response to stress Comment: Atenolol not held prior to testing BP Resting BP Supine: 110/72 mmHg Resting BP Standin/76 mmHg Max BP: 168/86 mmHg Recovery BP: 132/80 mmHg BP response to stress: Normal blood pressure response to stress. ECG Resting ECG: Sinus Rhythm Ectopy: Frequent multifocal PVCs Stress ECG: Sinus Tachycardia ST Change: Horizontal ST depression, Downsloping ST depression Lead(s): II, III, aVF, V6 Stage: [address] Deviation: 1-2 mm Arrhythmia: Frequent multifocal PVCs, bigeminy, trigeminy Recovery ECG: Sinus Rhythm Recovery ST Change: No significant ST segment changes noted Recovery Arrhythmia: Rare PACs, frequent multifocal PVCs Clinical Reason for Termination: Fatigue Stress Symptoms: General Fatigue, Dyspnea Exercise duration: 7 min31 sec Highest Stage Reached: Stage 3: 3.4 mph at 14% grade. Exercise capacity: 9.41 METs Meneses Treadmill Score: 6.9 Rate Pressure Product: [id number] Stress ECG Conclusion 1. Resting electrocardiogram was within normal limits 2. Patient exercised on the Vasquez protocol and completed a workload of 9.41 METS, limited by fatigue 3. Normal heart rate and blood pressure response to exercise. Patient achieved greater than 100% of predicted heart rate for age 4. The electrocardiographic portion of the test did not demonstrate any myocardial ischemia 5. Frequent PVCs were noted Men[place]es Treadmill Score is 6.9 which is Low risk. Stress Test Summary STAGE Time (mins) Speed (mph) Grade (%) HR BP SYMPTOMS METS Supine 72 110/72 Standing 71 120/76 SpO2 93% 1 3 1.7 10 106 142/86 SpO2 95% 4.6 2 6 2.5 12 119 168/86 SpO2 93% 7 3 9 3.4 14 158 Mild SOB, SpO2 92% 10.2 1 min recovery 120 150/72 SOB resolved, SpO2 93% 3 min recovery 98 154/76 SpO2 95% 6 min recovery 86 134/82 SpO2 96% 9 min recovery 8 132/80 SpO2 96% MPI Conclusion Normal myocardial perfusion without evidence of ischemia or prior infarction EF 57%, normal wall motion Radiologist Interpretation Radiologist agrees with Research Epidemiologist's Interpretation. Radiologist Interpretation by: Lorraine Aguilar MD Interpretation Date/Time: 05/27/2021 16:59:59
== END 2021-05-27 02:37 ==
PROVIDERS: PCP Family Medicine; Visit Provider Family Medicine
DX: R07.89 Other chest pain (principal); I49.3 Ventricular premature depolarization
CPT/HCPCS: 78452; 93016; 93018; 93017

== ENCOUNTER 2021-05-27 04:16 | Outpatient (CLI) | payer MEDICARE, MEDICAID, SELFPAY ==
[2021-05-27 08:57] LABS: Anion Gap 13.4 mmol/L (3-11); BUN 27 mg/dL (7-18); CO2 23.6 mmol/L (21.0-32.0); CREATININE 1.2 mg/dL (0.70-1.30); Calcium 9.2 mg/dL (8.5-10.1); Calculated LDL 173 mg/dL (<100); Chloride 103 mmol/L (98-107); Cholesterol 254 mg/dL (<200); Estimated GFR 58.26 (mL/min/1.73m2); Glucose 118 mg/dL (74-106); HDL Cholesterol 42 mg/dL (40-60); Potassium 4.3 mmol/L (3.5-5.1); Sodium 140 mmol/L (136-145); Triglyceride 198 mg/dL (<150)
== END 2021-05-27 04:17 | disposition home or self-care (01) ==
LOC: LBO 04:17
PROVIDERS: PCP Family Medicine; Visit Provider Family Medicine
DX: E87.1 Hypo-osmolality and hyponatremia (principal); E78.5 Hyperlipidemia, unspecified; I65.23 Occlusion and stenosis of bilateral carotid arteries
CPT/HCPCS: 36415; 80048; 80061

== ENCOUNTER 2022-05-26 14:37 | Emergency (ER) | payer MEDICARE, MEDICAID, SELFPAY ==
[2022-05-26 14:43] VITALS: BP 161/77; PULSE 100; RESP 16; TEMP 36.7; O2SAT 98
--- NOTE | 2022-05-26 16:13 | NUR.NOTE ---
Nursing Note: Patient stated to access that he was leaving and would return later.
== END 2022-05-26 15:57 | disposition left against medical advice (07) ==
PROVIDERS: Emergency Provider Physician Assistant; PCP Family Medicine
DX: Z53.21 Procedure and treatment not carried out due to patient leaving prior to being seen by health care provider (principal)

== ENCOUNTER 2022-05-27 10:13 | Emergency (ER) | payer MEDICARE, MEDICAID, SELFPAY ==
[2022-05-27 10:20] VITALS: BP 170/77; PULSE 78; RESP 18; TEMP 36.7; O2SAT 96
--- NOTE | 2022-05-27 10:46 | ED.GENADUL_ITS ---
Discharge Plan Disposition Patient Disposition: Home Condition: Stable Discharge Details Chief Complaint: Orthopedic Clinical Impression: Gout Primary Care Provider: Azeem Tovar ED Provider: Francesco Buenrostro Home Meds and New Rx's Prescriptions: No Action atenolol 25 mg tablet 25 mg PO DAILY Qty: 90 3RF omeprazole magnesium [Prilosec OTC] 20 mg tablet,delayed release (DR/EC) 20 mg PO DAILY PRN (Reason: dyspepsia) Qty: 90 3RF lisinopril-hydrochlorothiazide 20-25 mg tablet 0.5 tab PO DAILY Qty: 90 4RF Rx Instructions: dose reduction 12/14/21 nitroglycerin 0.4 mg tablet, sublingual 0.4 mg sublingual Q5-15M PRN (Reason: chest pain) Qty: 25 0RF Rx Instructions: take as needed q 5 mins for c/p until gone if take 3 pills and pain persists, call aspirin [Aspirin Low-Strength] 81 MG tablet,chewable 81 mg PO DAILY Discharge Instructions Instructions: Gout (ED) Additional Instructions: Please return to the emergency department if your symptoms worsen. Please follow-up with your primary care physician Medical Decision Making 82-year-old male history of arthritis presents with painful base of the right toe for approximately 1 week, afebrile nontoxic ambulatory without assistance. Localized induration erythema and tenderness to the base of his first digit of his right foot. High clinical suspicion for gout lower suspicion for cellulitis or abscess given inflammation has been going on for a week without spreading or systemic signs of illness. Will administer dose of IM dexamethasone. Given patient's age history of possible borderline diabetes I am reluctant to send him on a long course of prednisone will see if patient responds to long-acting IM steroid given strict return precautions for any worsening symptoms. Has follow- up with his primary care in the coming weeks. HPI General Date/Time Provider Initiated Documentation: 05/27/22 10:35 . HPI Narrative: 82-year-old male presents with painful swollen toe of right foot has been present for approximately 1 week located the base of his great toe, does have a history of arthritis in his feet and hands. Denies any injury denies fevers chills or systemic signs of illness. Denies history of gout Related Data Home Medications Medication Instructions Recorded Confirmed aspirin 81 mg chewable tablet 81 mg PO DAILY 06/23/15 05/27/22 (Aspirin Low-Strength) nitroglycerin 0.4 mg sublingual 0.4 mg sublingual Q5-15M PRN chest 05/12/21 05/27/22 tablet pain #25 tabs atenolol 25 mg tablet 25 mg PO DAILY #90 tabs 06/09/21 05/27/22 lisinopril 20 0.5 tab PO DAILY #90 tab-caps 12/14/21 05/27/22 mg-hydrochlorothiazide 25 mg tablet omeprazole magnesium 20 mg 20 mg PO DAILY PRN dyspepsia #90 12/14/21 05/27/22 tablet,delayed release (Prilosec tabs OTC) Previous Rx's Medication Instructions Recorded nitroglycerin 0.4 mg sublingual 0.4 mg sublingual Q5-15M PRN chest 05/12/21 tablet pain #25 tabs atenolol 25 mg tablet 25 mg PO DAILY #90 tabs 06/09/21 lisinopril 20 0.5 tab PO DAILY #90 tab-caps 12/14/21 mg-hydrochlorothiazide 25 mg tablet omeprazole magnesium 20 mg 20 mg PO DAILY PRN dyspepsia #90 12/14/21 tablet,delayed release (Prilosec tabs OTC) Allergies Allergy/AdvReac Type Severity Reaction Status Date / Time simvastatin AdvReac Severe Hallucinati Verified 05/27/22 10:26 ons pravastatin AdvReac Mild Nightmares Verified 05/27/22 10:26 General Stated Complaint: Orthopedic TERRELL: 4 Review of Systems Narrative: Review of Systems Constitutional: negative Eyes: negative ENT: negative Cardiovascular: negative Respiratory: negative Gastrointestinal: negative : negative Musculoskeletal: Foot pain, toe pain Skin: negative Neurologic: negative Psych: negative PFSH All Active Problems (Updated 05/27/22 @ 10:51 by Francesco Buenrostro MD) Gout (Chronic) Dizziness (Acute) Prediabetes (Acute) Chest pain (Acute) Weakness (Acute) Carpal tunnel syndrome on left (Acute) Palpitations (Acute) Radicular pain of left lower extremity (Acute) Pruritic condition (Acute) Rotator cuff tear arthropathy of right shoulder (Acute) Primary osteoarthritis, right shoulder (Acute) Essential hypertension (Chronic 03/04/13) Gastroesophageal reflux disease (Chronic) Hyperlipidemia (Chronic) intol statins nightmares 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 Diabetes Paternal Grandfather , 69 Diabetes Heart disease Stroke Maternal Grandmother Heart disease Paternal Grandmother Heart disease Son No problems noted. Son No problems noted. Social History (Updated 12/24/21 @ 11:10 by Osiris Ty) Smoking/Tobacco Use Status: Former Tobacco Use tobacco type: cigarettes Quit Date: 03/27/79 Tobacco: How many years used: 20 Second Hand Exposure: Yes Smoking risk assessment performed?: Yes Alcohol Intake: former Drug use: Never Substance use type: does not use Caregiver/Support person: No Household members: none Housing: house Communication Needs: None Do you need help understanding health information?: Never Pets and animals: No Sexually active: No Do you think of yourself as: straight/heterosexual Current gender identity: male What is your relationship status?: How often do you talk on the phone with friends or family?: decline to answer How often do you get together with friends or relatives?: decline to answer How often do you attend taoist or adventism services?: decline to answer Do you belong to any clubs or organized social groups?: no Panel score (0-1 are the most socially isolated patients): 0 What type of physical activity do you participate in: other Details: work Duration: > 90 minutes/day Frequency: 5-6 times per week Danica/Faith: No preference Special danica needs: No Seatbelt use: always Helmet use: No 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 Do you feel safe at home: Yes Do you feel safe in your relationship?: Yes Exam Narrative Exam Narrative: Physical Examination General: alert, awake, cooperative, resting comfortably, no acute distress HEENT: normocephalic, atraumatic; PERRL, EOM intact, conjunctiva normal; no nasal discharge; moist mucous membranes, oral and pharyngeal mucosa normal, tolerating secretions Neck: supple, trachea midline; full ROM Chest: normal to inspection Respiratory: normal respiratory effort, speaking in full sentences, clear to auscultation, no wheezing, rales or rhonchi Cardiac: regular rate, regular rhythm, S1S2 intact, no murmurs rubs or gallops GI: abdomen soft, non-tender, non-distended; no palpable mass or hepatosplenomegaly Skin: Tender erythematous toe located at base of first digit of right foot, nonfluctuant, no skin breakdown ulcerations or abrasions no lymphangitic streaking Neuro: AAOx3, normal speech, moving all extremities Extremities: Full range of motion of all extremities, ambulatory without assistance Psych: Appropriate mood and affect Course Vital Signs Vital signs: Vital Signs Temperature 36.7 C 05/27/22 10:20 Pulse 78 05/27/22 10:20 Respiratory Rate 18 05/27/22 10:20 Blood Pressure 170/77 H 05/27/22 10:20 Pulse Oximetry 96 05/27/22 10:20 Temperature 36.7 C 05/27/22 10:20 Temperature Source Oral 05/27/22 10:20 Pulse 78 05/27/22 10:20 Respiratory Rate 18 05/27/22 10:20 Respiratory Effort Normal, Non-Labored 05/27/22 10:25 Blood Pressure 170/77 H 05/27/22 10:20 Blood Pressure Position Sitting 05/27/22 10:20 Pulse Oximetry 96 05/27/22 10:20 Oxygen Delivery Method Room Air 05/27/22 10:20 Oxygen Flow Rate 0 05/27/22 10:20 Pain Level 8 05/27/22 10:20
[2022-05-27] MEDS: Dexamethasone 10 MG/ML VIAL IM (10:57)
== END 2022-05-27 10:58 | disposition home or self-care (01) ==
PROVIDERS: Emergency Provider Emergency Medicine; PCP Family Medicine
DX: M10.071 Idiopathic gout, right ankle and foot (principal)
CPT/HCPCS: 96372; 99284; 99283; J1100

== ENCOUNTER 2022-08-30 03:20 | Outpatient (CLI) | payer MEDICARE, MEDICAID, SELFPAY ==
[2022-08-30 13:11] LABS: Anion Gap 12.3 mmol/L (3-11); BUN 14 mg/dL (7-18); CO2 25.7 mmol/L (21.0-32.0); Calcium 9.2 mg/dL (8.5-10.1); Calculated LDL 118 mg/dL (<100); Chloride 102 mmol/L (98-107); Cholesterol 188 mg/dL (<200); Estimated GFR 75.61 (mL/min/1.73m2); Glucose 98 mg/dL (74-106); HDL Cholesterol 45 mg/dL (40-60); Sodium 140 mmol/L (136-145); Triglyceride 126 mg/dL (<150)
== END 2022-08-30 03:21 | disposition home or self-care (01) ==
LOC: LOS 03:20
PROVIDERS: PCP Family Medicine; Visit Provider Family Medicine
DX: E78.5 Hyperlipidemia, unspecified (principal); I25.10 Atherosclerotic heart disease of native coronary artery without angina pectoris; E87.1 Hypo-osmolality and hyponatremia; E11.9 Type 2 diabetes mellitus without complications; I10 Essential (primary) hypertension
CPT/HCPCS: 36415; 80048; 80061

== ENCOUNTER 2022-10-14 10:00 | Emergency (ER) | payer MEDICARE, MEDICAID, SELFPAY ==
[2022-10-14 10:02] VITALS: BP 178/64; PULSE 82; RESP 15; TEMP 36.6; O2SAT 98
--- NOTE | 2022-10-14 10:15 | DI.US_ITS ---
Exam(s) US LOWER EXTREMITY VENOUS LT EXAM: US LOWER EXTREMITY VENOUS LT CLINICAL HISTORY: knee pain / edema. TECHNIQUE: Lower extremity venous ultrasound performed using grayscale, color-flow, and spectral Do ppler analysis. COMPARISON: No exams were available for comparison FINDINGS: The common femoral, femoral and popliteal veins demonstrate normal compressibility, augmentation, and color Doppler. The posterior tibial veins are patent. No saphenous vein thrombosis or other superfi cial venous thrombosis is seen. There is a Vaughn's cyst measuring 2.8 x 0.7 x 1.8 cm. IMPRESSION: Vaughn's cyst. No evidence of DVT. DATA REPOSITORY:
--- NOTE | 2022-10-14 10:28 | W.ED.GENAD ---
Discharge Plan Disposition Patient Disposition: Home Discharge Details Clinical Impression: Knee pain, left, Vaughn's cyst of knee Primary Care Provider: Azeem Tovar ED Provider: Anshul Morillo Home Meds and New Rx's Prescriptions: Continued omeprazole magnesium [Prilosec OTC] 20 mg tablet,delayed release (DR/EC) 20 mg PO DAILY PRN (Reason: dyspepsia) Qty: 90 3RF atenolol 25 mg tablet 25 mg PO DAILY Qty: 90 3RF nitroglycerin 0.4 mg tablet, sublingual 0.4 mg sublingual Q5-15M PRN (Reason: chest pain) Qty: 25 0RF Rx Instructions: take as needed q 5 mins for c/p until gone if take 3 pills and pain persists, call psyllium husk 0.4 gram capsule 0.8 g PO DAILY Qty: 180 3RF aspirin [Aspirin Low-Strength] 81 MG tablet,chewable 81 mg PO DAILY lisinopril-hydrochlorothiazide 20-25 mg tablet 0.5 tab PO DAILY Qty: 90 4RF Rx Instructions: dose reduction 12/14/21 Discharge Instructions Instructions: Knee Pain (ED) Additional Instructions: You may continue to take [id number] Tylenol as needed for pain and discomfort. Just do not exceed 3000 mg in a 24-hour period. Continue to use the provided Tito wrap as that will help with swelling and discomfort. You may perform activities as tolerated by pain. If not improving in the next 1 to 2 weeks please follow-up with your primary care provider for reassessment and further treatment as needed If you have any new or significant worsening of your symptoms feel free to return the emergency department for reassessment Referrals: Azeem Tovar MD [Primary Care Provider] - 2 weeks Discharge Data Discharge Date/Time-TO BE ENTERED AT DEPARTURE: 10/14/22 11:18 Medical Decision Making Patient presenting to the emergency department for chief complaint of knee pain. Patient states approximately 1 week ago he started having pain behind his left knee. He denies any injury or trauma, increased activity, known cause of the discomfort. Patient denies all other symptoms. Patient does have history of prediabetes, chronic kidney disease, CAD, hypertension. Physical exam shows significant popliteal swelling discomfort and slight ecchymosis, slight vascular congestion and swelling noted to distal extremity but very subtle, exam otherwise unremarkable with no joint tenderness, no ligamentous laxity, no crepitus. Differential diagnosis to include Vaughn's cyst versus DVT. We will plan on performing ultrasound imaging. Patient denies any need of pain medication pending results. Preliminary report from processing technician was no signs of DVT but there was a Vaughn's cyst. Patient's knee was wrapped with Tito wrap and he was encouraged to continue use [id number] medication as needed for discomfort. Patient follow-up with primary care provider if not improving the next 1 to 2 weeks or return for new or worsening symptoms. After discussion of diagnosis and plan of care patient has no further needs, questions, or concerns and states clear understanding to return to the emergency department for any worsening symptoms. This documentation was generated using Devver dictation system, please disregard any oddities of phrase or misspellings. Imaging Data Radiologic Study: Imaging: Ultrasound Radiologist's impression: Exam(s) US LOWER EXTREMITY VENOUS LT EXAM: US LOWER EXTREMITY VENOUS LT CLINICAL HISTORY: knee pain / edema. TECHNIQUE: Lower extremity venous ultrasound performed using grayscale, color-flow, and spectral Doppler analysis. COMPARISON: No exams were available for comparison FINDINGS: The common femoral, femoral and popliteal veins demonstrate normal compressibility, augmentation, and color Doppler. The posterior tibial veins are patent. No saphenous vein thrombosis or other superficial venous thrombosis is seen. There is a Vaughn's cyst measuring 2.8 x 0.7 x 1.8 cm. IMPRESSION: Vaughn's cyst. No evidence of DVT. HPI General Mode of arrival: ambulatory. Date/Time Provider Initiated Documentation: 10/14/22 10:10. Limitations to Documentation: no limitations. Information obtained by: patient and RN notes reviewed. History of Present Illness 82 year old M presents to the emergency department with the chief complaint of left knee pain , described as mild, Quality is described as aching, and is localized to the left and lower extremity. Patient reports no radiation. Patient started experiencing this week(s) (1) and it has been constant. No relieving factors improve symptom(s), No exacerbating factors reported . Patient notes no other symptoms.. Patient did receive the following treatments prior to arrival, Aspirin Related Data Home Medications Medication Instructions Recorded Confirmed aspirin 81 mg chewable tablet 81 mg PO DAILY 06/23/15 10/14/22 (Aspirin Low-Strength) omeprazole magnesium 20 mg 20 mg PO DAILY PRN dyspepsia #90 12/14/21 10/14/22 tablet,delayed release (Prilosec tabs OTC) atenolol 25 mg tablet 25 mg PO DAILY #90 tabs 06/21/22 10/14/22 nitroglycerin 0.4 mg sublingual 0.4 mg sublingual Q5-15M PRN chest 06/21/22 10/14/22 tablet pain #25 tabs psyllium husk 0.4 gram capsule 0.8 g PO DAILY #180 caps 06/21/22 10/14/22 lisinopril 20 0.5 tab PO DAILY #90 tab-caps 08/29/22 10/14/22 mg-hydrochlorothiazide 25 mg tablet Previous Rx's Medication Instructions Recorded omeprazole magnesium 20 mg 20 mg PO DAILY PRN dyspepsia #90 12/14/21 tablet,delayed release (Prilosec tabs OTC) atenolol 25 mg tablet 25 mg PO DAILY #90 tabs 06/21/22 nitroglycerin 0.4 mg sublingual 0.4 mg sublingual Q5-15M PRN chest 06/21/22 tablet pain #25 tabs psyllium husk 0.4 gram capsule 0.8 g PO DAILY #180 caps 06/21/22 lisinopril 20 0.5 tab PO DAILY #90 tab-caps 08/29/22 mg-hydrochlorothiazide 25 mg tablet Allergies Allergy/AdvReac Type Severity Reaction Status Date / Time simvastatin AdvReac Severe Hallucinati Verified 10/14/22 10:07 ons pravastatin AdvReac Mild Nightmares Verified 10/14/22 10:07 General Stated Complaint: Orthopedic TERRELL: 4 Review of Systems Constitutional Constitutional: Denies chills, Denies fever(s) and Denies headache(s) ENT Ears, Nose, Mouth, and Throat: Denies headache(s) Cardiovascular Cardiovascular: Denies chest pain, Denies pedal edema, Reports claudication, Denies leg edema and Denies dyspnea Respiratory Respiratory: Denies dyspnea Gastrointestinal Gastrointestinal: Denies abdominal pain Musculoskeletal Musculoskeletal: Reports as per HPI, Reports arthralgias and Reports joint swelling Neurologic Neurologic: Denies headache(s) and Denies sensory deficit PFSH All Active Problems (Updated 10/14/22 @ 11:09 by Anshul Morillo NP) Knee pain, left (Acute) Vaughn's cyst of knee (Acute) Actinic keratosis (Acute) Change in stool habits (Acute) Dizziness (Acute) Prediabetes (Acute) Chest pain (Acute) Weakness (Acute) Carpal tunnel syndrome on left (Acute) Palpitations (Acute) Radicular pain of left lower extremity (Acute) Pruritic condition (Acute) Rotator cuff tear arthropathy of right shoulder (Acute) Primary osteoarthritis, right shoulder (Acute) Essential hypertension (Chronic 03/04/13) Gastroesophageal reflux disease (Chronic) Hyperlipidemia (Chronic) intol statins nightmares 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 Diabetes Paternal Grandfather , 69 Diabetes Heart disease Stroke Maternal Grandmother Heart disease Paternal Grandmother Heart disease Son No problems noted. Son No problems noted. Social History Smoking/Tobacco Use Status: Former Tobacco Use tobacco type: cigarettes Quit Date: 03/27/79 Tobacco: How many years used: 20 Second Hand Exposure: Yes Smoking risk assessment performed?: Yes Alcohol Intake: former Drug use: Never Substance use type: does not use Caregiver/Support person: No Household members: none Housing: house Communication Needs: None Do you need help understanding health information?: Never Pets and animals: No Sexually active: No Do you think of yourself as: straight/heterosexual Current gender identity: male What is your relationship status?: How often do you talk on the phone with friends or family?: decline to answer How often do you get together with friends or relatives?: decline to answer How often do you attend moravian or yarsanism services?: decline to answer Do you belong to any clubs or organized social groups?: no Panel score (0-1 are the most socially isolated patients): 0 What type of physical activity do you participate in: other Details: work Duration: > 90 minutes/day Frequency: 5-6 times per week Danica/Pentecostalism: No preference Special danica needs: No Seatbelt use: always Helmet use: No 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 Do you feel safe at home: Yes Do you feel safe in your relationship?: Yes Exam Const General: cooperative, healthy appearing, comfortable and no acute distress Orientation: alert, awake and oriented x3 Resp Effort & Inspection: normal respiratory effort and able to speak in complete sentences Cardio Rate: regular rate Rhythm: regular rhythm Pulses: normal peripheral pulses Neuro General: patient alert, patient awake, patient oriented x3, moves all extremities and no focal motor deficits Extrem General: normal exam except as noted Left lower extremity: knee Details: tenderness Location: of the popliteal fossa, swelling Location: of the popliteal fossa, normal ROM, knee ligament exam normal and ecchymosis knee posterior ; no crepitus and lower leg Details: other (Mild general swelling with noted vascular congestion) Course Vital Signs Vital signs: Vital Signs Temperature 36.6 C 10/14/22 10:02 Pulse 82 10/14/22 10:02 Respiratory Rate 15 10/14/22 10:02 Blood Pressure 178/64 H 10/14/22 10:02 Pulse Oximetry 98 10/14/22 10:02 Temperature 36.6 C 10/14/22 10:02 Temperature Source Oral 10/14/22 10:02 Pulse 82 10/14/22 10:02 Respiratory Rate 15 10/14/22 10:02 Respiratory Effort Normal 10/14/22 10:05 Blood Pressure 178/64 H 10/14/22 10:02 Blood Pressure Position Sitting 10/14/22 10:02 Pulse Oximetry 98 10/14/22 10:02 Oxygen Delivery Method Room Air 10/14/22 10:02 Oxygen Flow Rate 0 10/14/22 10:02 Pain Level 7 10/14/22 10:05
[2022-10-14 11:17] VITALS: BP 167/86; PULSE 65; RESP 15; TEMP 36.4; O2SAT 95
== END 2022-10-14 11:18 | disposition home or self-care (01) ==
PROVIDERS: Emergency Provider Nurse Practitioner Family; PCP Family Medicine
DX: R22.42 Localized swelling, mass and lump, left lower limb; I10 Essential (primary) hypertension; Z79.82 Long term (current) use of aspirin; M25.562 Pain in left knee; M71.22 Synovial cyst of popliteal space [Baker], left knee; Z87.891 Personal history of nicotine dependence
CPT/HCPCS: 99284; 93971; 99283

== ENCOUNTER 2022-10-19 13:44 | Outpatient (CLI) | payer MEDICARE, MEDICAID, SELFPAY ==
--- NOTE | 2022-10-19 13:30 | RT.EKG_ITS ---
APPROVED REPORT Exam: Resting ECG Reason for Exam: L jaw pain Patient Location: O HR:68 bpm ECG Measurements Heart Rate 68 AXIS HI 162 P 41 QRSd 92 QRS 31 QT 450 T 6 QTc 479 Conclusion Sinus rhythm...normal P axis, V-rate 50- 99 Ventricular premature complex...V complex w/ short R-R interval Borderline T abnormalities, inferior leads...T flat/neg, II III aVF
== END 2022-10-19 13:45 | disposition home or self-care (01) ==
LOC: DI.CM 13:45
PROVIDERS: PCP Family Medicine; Visit Provider Family Medicine
DX: R68.84 Jaw pain (principal)
CPT/HCPCS: 93010

== ENCOUNTER → 2022-11-10 02:03 | Outpatient (CLI) | payer MEDICARE, MEDICAID, SELFPAY ==
--- NOTE | 2022-11-10 07:15 | DI.NM_ITS ---
APPROVED REPORT Exam: Pharmacologic Patient Location: Out-Patient Room/Bed: Stress Nurse: Chloe Wilburn RN Ordering Provider:ANTONIO PATIÑO, Contact Number: [phone] BMI: 22.59 Baseline Rhythm: Sinus Rhythm Indications: Jaw pain, chest pain Medical History Medical History: Dizziness, prediabetes, chest pain, weakness, palpitations, essential HTN, GERD, HLD , chronic kidney hx. tobacco use, PVC's, anxiety, atherosclerosis of [place] coronary artery, [place] 1981 Cardiac Medications: Omeprazole, nitro, lisinoprol-hydrochlorathiazide, atenolol, aspirin Allergies: Simvastatin, pravastatin Cardiac Risk Factors: Family hx, HTN, HLD, prediabetes, asthma, previous smoker Previous Cardiac Procedures: [place] 1981 Pretest Chest Pain Characteristics: None Exercise History: None Physical Disabilities: Left knee Lung Sounds: Clear to auscultation Heart Sounds: Regular Stress Test Details Test: Pharmacologic stress testing performed using 0.4 mg of regadenoson per 5 mL given IV over 10 s econds. Reason for pharmacologic stress test: physical limitation. Nuclear Acquisition: Rest Tc-99m/Stress Tc-99m 1 day Rest Isotope: Tc-99m Sestamibi. Dose: 10.4 Date: 11/10/2022 Injection Time: 0840 Stress Isotope: Tc-99m Sestamibi. Dose: 30.5 Date: 11/10/2022 Injection Time: 1005 HR Resting HR Supine: 70 bpm Max Heart Rate (APMHR): 139.956762 bpm Target HR (85% APMHR): 118.386729 bpm Max HR Achieved: 88 bpm % of APMHR: 63.31 Recovery HR: 82 bpm BP Resting BP Supine: 180/90 mmHg Max BP: 180/90 mmHg Recovery BP: 150/78 mmHg BP response to stress: Blunted blood pressure response to stress. ECG Resting ECG: Sinus Rhythm Ectopy: Occasional Multifocal PVC's Stress ECG: Sinus Rhythm ST Change: Nondiagnostic low heart rate, , Horizontal ST depression, Downsloping ST depression Lead(s): inferior leads Maximum ST Deviation: 1-1.5 mm Arrhythmia: Occasional PVC Recovery ECG: Sinus Rhythm Recovery ST Change: Nondiagnostic low heart rate, Horizontal ST depression, Downsloping ST depression Recovery ST Deviation: 1-1.5 mm Recovery Arrhythmia: Occasional PVC Clinical Stress Symptoms: None Angina Score: None Rate Pressure Product: [id number] Stress ECG Conclusion 1. Resting electrocardiogram showed diffuse ST T abnormalities 2. Patient underwent testing using pharmacologic stress with regadenoson 3. Peak heart rate achieved was 63% of predicted for age 4. The electrocardiographic portion of the test was nondiagnostic 5. See MPI report Stress Test Summary STAGE HR BP SpO2 Symptoms NOTES Supine 70 180/90 94 1 min post Lexiscan injection 80 172/64 96 3 min post Lexiscan injection 85 134/70 6 min post Lexiscan injection 85 150/78 9 min post Lexiscan injection 82 150/78 MPI Conclusion Myocardial perfusion is normal. There is no ischemia or evidence of prior infarction Ejection fraction is 49% with normal wall motion Radiologist Interpretation Radiologist Interpretation by: Sy Chapman MD Interpretation Date/Time: 11/14/2022 18:05:04
[2022-11-10] MEDS: Regadenoson 0.4 MG/5 ML SYR IVP (10:49)
== END ==
PROVIDERS: PCP Family Medicine; Visit Provider Family Medicine
DX: R07.9 Chest pain, unspecified (principal)
CPT/HCPCS: 78452; 93016; 93018; 93017; J2785

== ENCOUNTER 2022-11-29 08:20 | Outpatient (CLI) | payer MEDICARE, MEDICAID, SELFPAY ==
--- NOTE | 2022-11-29 08:15 | RT.EKG_ITS ---
APPROVED REPORT Exam: Resting ECG Reason for Exam: cardiac evaluation Patient Location: O HR:69 bpm ECG Measurements Heart Rate 69 AXIS KS 162 P 26 QRSd 105 QRS 16 QT 441 T -3 QTc 473 Conclusion Sinus rhythm...normal P axis, V-rate 50- 99 Normal Electrocardiogram
== END 2022-11-29 08:21 | disposition home or self-care (01) ==
LOC: DI.CARD 08:21
PROVIDERS: PCP Family Medicine; Visit Provider Internal Medicine Cardiovascular Disease
DX: Z13.6 Encounter for screening for cardiovascular disorders (principal)
CPT/HCPCS: 93010

== ENCOUNTER → 2022-11-29 11:02 | Outpatient (BNVA) | payer MEDICARE, MEDICAID, SELFPAY | PROVIDERS: PCP Family Medicine; Referring Provider Family Medicine; Visit Provider Internal Medicine Cardiovascular Disease | DX: I10 Essential (primary) hypertension (principal); E78.2 Mixed hyperlipidemia; I25.10 Atherosclerotic heart disease of native coronary artery without angina pectoris | CPT/HCPCS: 93005; 99203; 99213 ==

== ENCOUNTER 2023-05-14 10:26 | Emergency (ER) | payer MEDICARE, MEDICAID, SELFPAY ==
[2023-05-14 10:27] VITALS: BP 166/77; PULSE 93; RESP 15; TEMP 36.4; O2SAT 100
--- NOTE | 2023-05-14 10:45 | W.ED.GENAD ---
HPI General Mode of arrival: ambulatory. Date/Time Provider Initiated Documentation: 05/14/23 10:26. Limitations to Documentation: no limitations. Information obtained by: patient and RN notes reviewed. History of Present Illness 83 year old M presents to the emergency department with the chief complaint of Right great toe swelling and discomfort, described as moderate and similar to prior episodes, Patient started experiencing this day(s) (5) and it has been constant. No relieving factors improve symptom(s), No exacerbating factors reported . Patient notes no other symptoms.. Patient did receive the following treatments prior to arrival, none Related Data Home Medications Medication Instructions Recorded Confirmed aspirin 81 mg chewable tablet 81 mg PO DAILY 06/23/15 05/14/23 (Aspirin Low-Strength) omeprazole magnesium 20 mg 20 mg PO DAILY PRN dyspepsia #90 12/14/21 05/14/23 tablet,delayed release (Prilosec tabs OTC) atenolol 25 mg tablet 25 mg PO DAILY #90 tabs 06/21/22 05/14/23 nitroglycerin 0.4 mg sublingual 0.4 mg sublingual Q5-15M PRN chest 06/21/22 05/14/23 tablet pain #25 tabs amlodipine 5 mg tablet 5 mg PO DAILY #90 tabs 12/22/22 05/14/23 lisinopril 20 1 tab PO DAILY #90 tab-caps 12/22/22 05/14/23 mg-hydrochlorothiazide 25 mg tablet Previous Rx's Medication Instructions Recorded omeprazole magnesium 20 mg 20 mg PO DAILY PRN dyspepsia #90 12/14/21 tablet,delayed release (Prilosec tabs OTC) atenolol 25 mg tablet 25 mg PO DAILY #90 tabs 06/21/22 nitroglycerin 0.4 mg sublingual 0.4 mg sublingual Q5-15M PRN chest 06/21/22 tablet pain #25 tabs amlodipine 5 mg tablet 5 mg PO DAILY #90 tabs 12/22/22 lisinopril 20 1 tab PO DAILY #90 tab-caps 12/22/22 mg-hydrochlorothiazide 25 mg tablet Allergies Allergy/AdvReac Type Severity Reaction Status Date / Time simvastatin AdvReac Severe Hallucinati Verified 05/14/23 10:32 ons pravastatin AdvReac Mild Nightmares Verified 05/14/23 10:32 General Stated Complaint: Orthopedic TERRELL: 4 Review of Systems Constitutional Constitutional: Denies chills, Denies fever(s) and Denies malaise Musculoskeletal Musculoskeletal: Reports as per HPI, Reports deformity (Chronic- feet) and Reports arthralgias Integumentary/Breasts Skin/Breast: Reports erythema Exam Const General: cooperative, no acute distress and not ill appearing Orientation: alert, awake and oriented x3 HENMT Mouth: moist mucous membranes Resp Effort & Inspection: normal respiratory effort, able to speak in complete sentences and no respiratory distress Cardio Rate: regular rate Rhythm: regular rhythm Pulses: posterior tibial pulses present Skin General skin exam: no rashes or lesions noted Neuro General: patient alert, patient awake, patient oriented x3, moves all extremities and no focal motor deficits Sensory Exam: no sensory deficits noted Extrem Right lower extremity: foot Details: normal capillary refill, abnormal to inspection (congnital abnormality of foot/toes) Details: erythematous (MTP great) and tenderness Location: of the great toe Location: at the MTP joint Course Vital Signs Vital signs: Vital Signs Temperature 36.4 C L 05/14/23 10:27 Pulse 93 H 05/14/23 10:27 Respiratory Rate 15 05/14/23 10:27 Blood Pressure 166/77 H 05/14/23 10:27 Pulse Oximetry 100 05/14/23 10:27 Temperature 36.4 C L 05/14/23 10:27 Temperature Source Temporal Artery Scan 05/14/23 10:27 Pulse 93 H 05/14/23 10:27 Respiratory Rate 15 05/14/23 10:27 Respiratory Effort Normal 05/14/23 10:31 Blood Pressure 166/77 H 05/14/23 10:27 Blood Pressure Position Sitting 05/14/23 10:27 Pulse Oximetry 100 05/14/23 10:27 Oxygen Delivery Method Room Air 05/14/23 10:27 Oxygen Flow Rate 0 05/14/23 10:27 Pain Level 7 05/14/23 10:27 Medical Decision Making Patient with history of similar presentation and gout, stated that IM injection of Decadron relieved his symptoms. Chronic abnormality of foot with abnormal toenail growth and chronic discomfort. Patient states he has never seen podiatry. Physical exam is consistent with gout. While cellulitis is considered I have a lower suspicion of this given history of similar presentation along with patient stating symptoms going on for 4 to 5 days with no significant spread of symptoms and no systemic symptoms in that timeframe. Will treat patient with Decadron and have him return for any change in condition. After discussion of diagnosis and plan of care patient has no further needs, questions, or concerns and states clear understanding to return to the emergency department for any worsening symptoms. This documentation was generated using [employer] dictation system, please disregard any oddities of phrase or misspellings. Quality:SDOH Health Related Social Needs: No Data to Display PFSH All Active Problems Gout (Chronic) Actinic keratosis (Acute) Change in stool habits (Acute) Dizziness (Acute) Prediabetes (Acute) Chest pain (Acute) Weakness (Acute) Carpal tunnel syndrome on left (Acute) Palpitations (Acute) Radicular pain of left lower extremity (Acute) Pruritic condition (Acute) Rotator cuff tear arthropathy of right shoulder (Acute) Primary osteoarthritis, right shoulder (Acute) Essential hypertension (Chronic 03/04/13) Gastroesophageal reflux disease (Chronic) Hyperlipidemia (Chronic) intol statins nightmares 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 Diabetes Paternal Grandfather , 69 Diabetes Heart disease Stroke Maternal Grandmother Heart disease Paternal Grandmother Heart disease Son No problems noted. Son No problems noted. Social History Smoking/Tobacco Use Status: Former Tobacco Use tobacco type: cigarettes Quit Date: 03/27/79 Tobacco: How many years used: 20 Second Hand Exposure: Yes Smoking risk assessment performed?: Yes Alcohol Intake: former Drug use: Never Substance use type: does not use Caregiver/Support person: No Household members: none Housing: house Communication Needs: None Do you need help understanding health information?: Never Pets and animals: No Sexually active: No Do you think of yourself as: straight/heterosexual Current gender identity: male What is your relationship status?: How often do you talk on the phone with friends or family?: decline to answer How often do you get together with friends or relatives?: decline to answer How often do you attend confucianism or baptist services?: decline to answer Do you belong to any clubs or organized social groups?: no Panel score (0-1 are the most socially isolated patients): 0 What type of physical activity do you participate in: other Details: work Duration: > 90 minutes/day Frequency: 5-6 times per week Danica/Quaker: No preference Special danica needs: No Seatbelt use: always Helmet use: No 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 Do you feel safe at home: Yes Do you feel safe in your relationship?: Yes Discharge Plan Disposition Patient Disposition: Home Discharge Details Clinical Impression: Acquired cavus deformity of foot, Gout Primary Care Provider: Azeem Tovar ED Provider: Anshul Morillo Home Meds and New Rx's Prescriptions: Continued omeprazole magnesium [Prilosec OTC] 20 mg tablet,delayed release (DR/EC) 20 mg PO DAILY PRN (Reason: dyspepsia) Qty: 90 3RF amlodipine 5 mg tablet 5 mg PO DAILY Qty: 90 3RF lisinopril-hydrochlorothiazide 20-25 mg tablet 1 tab PO DAILY Qty: 90 4RF atenolol 25 mg tablet 25 mg PO DAILY Qty: 90 3RF nitroglycerin 0.4 mg tablet, sublingual 0.4 mg sublingual Q5-15M PRN (Reason: chest pain) Qty: 25 0RF Rx Instructions: take as needed q 5 mins for c/p until gone if take 3 pills and pain persists, call aspirin [Aspirin Low-Strength] 81 MG tablet,chewable 81 mg PO DAILY Discharge Instructions Instructions: Gout (ED) Additional Instructions: Continue to take your medication as prescribed and monitor symptoms. Return immediately for any new or significant worsening of your symptoms If the redness starts streaking up your leg or spreading rapidly, you develop fever or chills, or have any further concern again please return to the emergency department as this may not be gout but infection. Referrals: Barb Marques DPM [[facility] STAFF PHYSICIAN] - 2 weeks (Please call the office this week for arrangement of follow-up appointment for reassessment of gout along with your foot and nail deformity) Discharge Data Discharge Date/Time-TO BE ENTERED AT DEPARTURE: 05/14/23 11:28
--- NOTE | 2023-05-14 11:14 | NUR.NOTE ---
Referral faxed to [facility] Podiatry for recheck gout/foot and nail deformity in 2 weeks. Nursing Note:
[2023-05-14] MEDS: Dexamethasone 10 MG/ML VIAL IM (11:21)
== END 2023-05-14 11:28 | disposition home or self-care (01) ==
PROVIDERS: Emergency Provider Nurse Practitioner Family; PCP Family Medicine
DX: M10.9 Gout, unspecified (principal); M79.671 Pain in right foot
CPT/HCPCS: 96372; 99283; J1100

== ENCOUNTER 2023-06-11 09:39 | Emergency (ER) | payer MEDICARE, MEDICAID, SELFPAY ==
[2023-06-11 09:41] VITALS: BP 143/55; PULSE 80; RESP 18; TEMP 36.8; O2SAT 98
--- NOTE | 2023-06-11 09:53 | ED.GENADUL_ITS ---
Discharge Plan Disposition Patient Disposition: Home Condition: Stable Discharge Details Clinical Impression: Foot pain, right Primary Care Provider: Azeem Tovar ED Provider: Job Arita Home Meds and New Rx's Prescriptions: New prednisone 20 mg tablet 60 mg PO DAILY 4 Days Qty: 12 0RF Continued omeprazole magnesium [Prilosec OTC] 20 mg tablet,delayed release (DR/EC) 20 mg PO DAILY PRN (Reason: dyspepsia) Qty: 90 3RF amlodipine 5 mg tablet 5 mg PO DAILY Qty: 90 3RF lisinopril-hydrochlorothiazide 20-25 mg tablet 1 tab PO DAILY Qty: 90 4RF atenolol 25 mg tablet 25 mg PO DAILY Qty: 90 3RF nitroglycerin 0.4 mg tablet, sublingual 0.4 mg sublingual Q5-15M PRN (Reason: chest pain) Qty: 25 0RF Rx Instructions: take as needed q 5 mins for c/p until gone if take 3 pills and pain persists, call aspirin [Aspirin Low-Strength] 81 MG tablet,chewable 81 mg PO DAILY Discharge Instructions Additional Instructions: Follow-up with your primary care provider especially if not improving within a week. When sitting or laying down trying to keep the foot elevated can help If you feel more ill, have severe worsening pain or new symptoms such as high fevers return to the emergency department for reevaluation HPI General Mode of arrival: ambulatory . Date/Time Provider Initiated Documentation: 06/11/23 09:39 . Limitations to Documentation: no limitations . Information obtained by: patient . History of Present Illness 83 year old M presents to the emergency department with the chief complaint of Right great toe pain, described as moderate, Quality is described as aching, Patient started experiencing this day(s) (4) and it has been constant. Rest improves symptom(s), Movement worsens symptoms . Patient notes no other symptoms.; denies fever/chills. Patient did receive the following treatments prior to arrival, none Related Data Home Medications Medication Instructions Recorded Confirmed aspirin 81 mg chewable tablet 81 mg PO DAILY 06/23/15 06/11/23 (Aspirin Low-Strength) omeprazole magnesium 20 mg 20 mg PO DAILY PRN dyspepsia #90 12/14/21 06/11/23 tablet,delayed release (Prilosec tabs OTC) atenolol 25 mg tablet 25 mg PO DAILY #90 tabs 06/21/22 06/11/23 nitroglycerin 0.4 mg sublingual 0.4 mg sublingual Q5-15M PRN chest 06/21/22 06/11/23 tablet pain #25 tabs amlodipine 5 mg tablet 5 mg PO DAILY #90 tabs 12/22/22 06/11/23 lisinopril 20 1 tab PO DAILY #90 tab-caps 12/22/22 06/11/23 mg-hydrochlorothiazide 25 mg tablet prednisone 20 mg tablet 60 mg (3 x 20 mg) PO DAILY 4 days 06/11/23 #12 tabs Previous Rx's Medication Instructions Recorded omeprazole magnesium 20 mg 20 mg PO DAILY PRN dyspepsia #90 12/14/21 tablet,delayed release (Prilosec tabs OTC) atenolol 25 mg tablet 25 mg PO DAILY #90 tabs 06/21/22 nitroglycerin 0.4 mg sublingual 0.4 mg sublingual Q5-15M PRN chest 06/21/22 tablet pain #25 tabs amlodipine 5 mg tablet 5 mg PO DAILY #90 tabs 12/22/22 lisinopril 20 1 tab PO DAILY #90 tab-caps 12/22/22 mg-hydrochlorothiazide 25 mg tablet prednisone 20 mg tablet 60 mg (3 x 20 mg) PO DAILY 4 days 06/11/23 #12 tabs Allergies Allergy/AdvReac Type Severity Reaction Status Date / Time simvastatin AdvReac Severe Hallucinati Verified 06/11/23 09:45 ons pravastatin AdvReac Mild Nightmares Verified 06/11/23 09:45 General Stated Complaint: Orthopedic TERRELL: 4 Review of Systems All systems reviewed & are unremarkable except as noted in HPI and below Constitutional Constitutional: Denies chills, Denies fever(s) and Denies weakness Cardiovascular Cardiovascular: Denies chest pain and Denies dyspnea Respiratory Respiratory: Denies cough and Denies dyspnea Gastrointestinal Gastrointestinal: Denies abdominal pain, Denies nausea and Denies vomiting Musculoskeletal Musculoskeletal: Denies joint swelling Neurologic Neurologic: Denies weakness Exam Const General: no acute distress Orientation: alert HENMT Head: normal to inspection Ears: external ears normal General nose exam: external nose normal Mouth: moist mucous membranes Eyes General: appearance normal, both eyes and all related structures Neck Neck: normal visual inspection Resp Effort & Inspection: normal respiratory effort and able to speak in complete sentences Cardio Rate: regular rate Skin General skin exam: no rashes or lesions noted Neuro General: patient alert and patient oriented x3 Extrem General: full ROM and capillary refill normal Psych Mental Status: mental status grossly normal Course Vital Signs Vital signs: Vital Signs Temperature 36.8 C 06/11/23 09:41 Pulse 80 06/11/23 09:41 Respiratory Rate 18 06/11/23 09:41 Blood Pressure 143/55 H 06/11/23 09:41 Pulse Oximetry 98 06/11/23 09:41 Temperature 36.8 C 06/11/23 09:41 Temperature Source Skin 06/11/23 09:41 Pulse 80 06/11/23 09:41 Respiratory Rate 18 06/11/23 09:41 Blood Pressure 143/55 H 06/11/23 09:41 Blood Pressure Position Sitting 06/11/23 09:41 Pulse Oximetry 98 06/11/23 09:41 Oxygen Delivery Method Room Air 06/11/23 09:41 Oxygen Flow Rate 0 06/11/23 09:41 Pain Level 6 06/11/23 09:41 Comment takes aspirin but was told it is not good for gout 06/11/23 09:41 Medical Decision Making 83-year-old male who has a chronic condition with his feet from , and has a history of gout especially in the right great toe, last episode was a month ago and got Decadron with some improvement. He comes in today with few days of worsening right great toe pain without any injury or trauma. He states he otherwise feels well, denies any fevers or chills, no leg swelling. He localizes the pain to the base of the right toe, has full range of motion and sensation is normal as well as cap refill. There is no significant erythema or swelling. Given his history suspect gout, will start him on prednisone. He has no findings on exam or history to suggest infectious etiology at this time. He will follow-up with his primary care provider and return precautions given Differential Diagnosis Differential Diagnosis: Gout, tendinitis Quality:SDOH Health Related Social Needs: No Data to Display PFSH All Active Problems (Updated 06/11/23 @ 09:54 by Job Arita MD) Foot pain, right (Acute) Gout (Chronic) Actinic keratosis (Acute) Change in stool habits (Acute) Dizziness (Acute) Prediabetes (Acute) Chest pain (Acute) Weakness (Acute) Carpal tunnel syndrome on left (Acute) Palpitations (Acute) Radicular pain of left lower extremity (Acute) Pruritic condition (Acute) Rotator cuff tear arthropathy of right shoulder (Acute) Primary osteoarthritis, right shoulder (Acute) Essential hypertension (Chronic 03/04/13) Gastroesophageal reflux disease (Chronic) Hyperlipidemia (Chronic) intol statins nightmares 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 Diabetes Paternal Grandfather , 69 Diabetes Heart disease Stroke Maternal Grandmother Heart disease Paternal Grandmother Heart disease Son No problems noted. Son No problems noted. Social History Smoking/Tobacco Use Status: Former Tobacco Use tobacco type: cigarettes Quit Date: 03/27/79 Tobacco: How many years used: 20 Second Hand Exposure: Yes Smoking risk assessment performed?: Yes Alcohol Intake: former Drug use: Never Substance use type: does not use Caregiver/Support person: No Household members: none Housing: house Communication Needs: None Do you need help understanding health information?: Never Pets and animals: No Sexually active: No Do you think of yourself as: straight/heterosexual Current gender identity: male What is your relationship status?: How often do you talk on the phone with friends or family?: decline to answer How often do you get together with friends or relatives?: decline to answer How often do you attend gnosticism or faith services?: decline to answer Do you belong to any clubs or organized social groups?: no Panel score (0-1 are the most socially isolated patients): 0 What type of physical activity do you participate in: other Details: work Duration: > 90 minutes/day Frequency: 5-6 times per week Danica/Pentecostal: No preference Special danica needs: No Seatbelt use: always Helmet use: No 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
[2023-06-11] MEDS: predniSONE 20 MG TAB 60 MG PO (10:02)
== END 2023-06-11 10:08 | disposition home or self-care (01) ==
PROVIDERS: Emergency Provider Emergency Medicine; PCP Family Medicine
DX: M79.671 Pain in right foot (principal); I10 Essential (primary) hypertension; E78.5 Hyperlipidemia, unspecified; I25.10 Atherosclerotic heart disease of native coronary artery without angina pectoris; I25.2 Old myocardial infarction; Z79.82 Long term (current) use of aspirin; Z87.891 Personal history of nicotine dependence
CPT/HCPCS: 99283; J7512

== ENCOUNTER → 2023-06-28 13:50 | Outpatient (BNVA) | payer MEDICARE, MEDICAID, SELFPAY | PROVIDERS: PCP Family Medicine; Referring Provider Family Medicine; Visit Provider Student in an Organized Health Care Education/Training Program | DX: M75.101 Unspecified rotator cuff tear or rupture of right shoulder, not specified as traumatic (principal); M19.011 Primary osteoarthritis, right shoulder | CPT/HCPCS: 20610; 99213; J1040 ==